=== PATIENT | female | born 2000 | race Caucasian/White ===

== ENCOUNTER 2022-04-11 12:00 | Outpatient (CLI) | payer OTHER ==
[2022-04-11 18:58] LABS: HCT - HEMATOCRIT 32.8 % (37.0-47.0); HGB - HEMOGLOBIN 10.2 g/dL (12.0-16.0); MEAN CORPUSCULAR HEMOGLOBIN 29.4 pg (27.0-31.0); MEAN CORPUSCULAR HGB CONC 31.1 g/dL (32.0-36.0); MEAN CORPUSCULAR VOLUME 94.5 fL (81.0-99.0); MEAN PLATELET VOLUME 10.1 fL (7.9-10.8); RED BLOOD COUNT 3.47 10^6/uL (4.20-5.40); RED CELL DISTRIBUTION WIDTH 13.2 % (12.0-15.0); WHITE BLOOD COUNT 9.4 x10^3/uL (4.8-10.8)
== END 2022-04-11 12:01 | disposition home or self-care (01) ==
LOC: LAB.N 12:00
PROVIDERS: ATTEND Nurse Practitioner
DX: Z34.90 Encounter for supervision of normal pregnancy, unspecified, unspecified trimester (principal); Z36.89 Encounter for other specified antenatal screening
CPT/HCPCS: 36415; 82728; 82950; 85027

== ENCOUNTER 2022-05-04 07:08 | Outpatient (CLI) | payer OTHER ==
--- NOTE | 2022-05-04 10:47 | Ultrasound Report ---
PROCEDURE: OB F/U or Repeat INDICATIONS: PYELECTASIS OUTSIDE/PRIOR DATING DATA: Last menstrual period (LMP): 09/29/2021. LMP-based estimated date of delivery (RILEY): 07/06/2022. First dating scan (date and location): 12/24/2021, [facility] in [place]. Estimated date of delivery (RILEY) from first dating scan: 07/05/2022. The below data below was generated using the sonographic RILEY of 07/05/2022 TECHNIQUE: Real-time scanning was performed of the fetus, with image documentation and biometric measurements. Endovaginal scanning: Not performed COMPARISON: No images available. Reports from outside studies dated 12/25/2021 and 02/05/2022 FINDINGS: General: A single living intrauterine gestation is present. Presentation: Cephalic Placenta: Placental position is fundal and posterior, without previa. Amniotic fluid index: 17.0 cm, largest pocket is 5.2 cm. heart rate: 150 beats per minute. Maternal cervical canal: 3.6 cm long; normal length is 2.5 cm or more. biometrics: Biparietal diameter: 7.6 cm, 30 weeks, 4 days Head circumference: 28.2 cm, 30 weeks, 6 days Abdominal circumference: 25.5 cm, 29 weeks, 5 days Femur length: 5.9 cm, 30 weeks, 5 days Estimated gestational age from initial scan: 31 weeks, 1 day. Composite gestational age from present scan: 30 weeks, 3 days Estimated weight and percentile: 1528 g, 13 percentile Measurement variability in biometric dating: +/- 10 days from 12-20 weeks gestation, +/- 2 weeks from 20-30 weeks gestation, +/- 3 weeks at 30 weeks gestation or more. Other: Right renal pelvis measures 3.9 mm in diameter, normal. Left renal pelvis measures 5.5 mm in d iameter. No visible hydronephrosis. IMPRESSION: 1. Single living intrauterine with appropriate growth. 2. Estimated weight at the 13th percentile. 3. Minor left renal pelviectasis, consistent with anatomic survey report. Reviewed by: Jade Eubanks MD on 05/04/2022 10:46 AM PST Approved by: aJde Eubanks MD on 05/04/2022 10:46 AM PST Station ID: [id number]
== END 2022-05-04 07:09 | disposition home or self-care (01) ==
LOC: DI 07:08
PROVIDERS: ATTEND Obstetrics & Gynecology
DX: O35.8XX0 Maternal care for other (suspected) fetal abnormality and damage, not applicable or unspecified (principal); Z3A.30 30 weeks gestation of pregnancy

== ENCOUNTER 2022-05-25 07:02 | Outpatient (CLI) | payer OTHER ==
--- NOTE | 2022-05-25 08:25 | Ultrasound Report ---
PROCEDURE: OB F/U or Repeat INDICATIONS: UTERINE SIZE DATE DISCREPANCY OUTSIDE/PRIOR DATING DATA: Last menstrual period (LMP): 09/29/2021. LMP-based estimated date of delivery (RILEY): 07/06/2022. First dating scan (date and location): 12/24/2021, Dr. Adan. Estimated date of delivery (RILEY) from first dating scan: 07/05/2022. TECHNIQUE: Real-time scanning was performed of the fetus, with image documentation and biometric measurements. COMPARISON: OB ultrasound dated 05/04/2022 FINDINGS: General: A single living intrauterine gestation is present. Presentation: Vertex Placenta: Placental position is posterior last fundal, without previa. Amniotic fluid index: 13.1 cm, 39% for gestational age. heart rate: 164 beats per minute. Maternal cervical canal: 3.1 cm long; normal length is 2.5 cm or more. biometrics: Biparietal diameter: 8.3 cm, 33 weeks, 3 days Head circumference: 30.8 cm, 34 weeks, 2 days Abdominal circumference: 27.8 cm, 31 weeks, 6 days Femur length: 6.5 cm, 33 weeks, 3 days Estimated gestational age from initial scan: 34 weeks, 1 day Composite gestational age from present scan: 33 weeks, 3 days Estimated weight and percentile: 2029 g, 10.8% Measurement variability in biometric dating: +/- 10 days from 12-20 weeks gestation, +/- 2 weeks from 20-30 weeks gestation, +/- 3 weeks at 30 weeks gestation or more. Other: Cord S/D ratio: 5.57, 5.15, 5.6 IMPRESSION: 1. Single live intrauterine gestation with a composite gestational age of 33 weeks, 3 days which is c oncordant with dates by initial scan. 2. Estimated weight percentile of 10.8%. Developing IUGR cannot be excluded. 3. Elevated cord S/D ratios. Findings suggest placental insufficiency. These findings were discussed by the hose tester with MATTHIAS Celis at the time of the study. Reviewed by: Aditi Faith MD on 05/25/2022 8:23 AM PST Approved by: Aditi Faith MD on 05/25/2022 8:23 AM PST Station ID: [id number]
== END 2022-05-25 07:03 | disposition home or self-care (01) ==
LOC: DI 07:02
PROVIDERS: ATTEND Nurse Practitioner
DX: O26.843 Uterine size-date discrepancy, third trimester (principal); Z3A.33 33 weeks gestation of pregnancy

== ENCOUNTER 2022-06-02 10:14 | Outpatient (CLI) | payer OTHER ==
[2022-06-02 10:36] VITALS: BP 126/84
--- NOTE | 2022-06-02 21:33 | PROCEDURE REPORT ---
- HPI Diagnosis/Indication for NST: Intrauterine growth restriction Current EDU 07/06/22 Gestation 35 Weeks and 1 Days 1 Para 0 Vital Signs Temperature 98.1 F 06/02/22 10:29 Heart Rate 85 06/02/22 10:29 Respiratory Rate 16 06/02/22 10:29 Blood Pressure 126/84 H 06/02/22 10:29 Temperature 98.1 F 06/02/22 10:30 Heart Rate 85 06/02/22 10:30 Respiratory Rate 16 06/02/22 10:30 Blood Pressure 126/84 H 06/02/22 10:30 O2 Saturation If not protocol: Oxygen Flow, liters/minute - NST Procedure NST Procedure Start Date 06/02/22 Start Time 10:25 Stop Time 10:52 Vibroacoustic Stimulation Used No Patient States Movement Yes EFM: 140s, moderate variability, positive accelerations 15x15, no decelerations [place]: no contractions NST reactive/Cat 1 Performed and read 06/02/22 - Results and Plan Plan: 22yo at 35.1w presents for scheduled NST for IUGR - NST reactive - Follow up 3d for NST and office visit - MFM follow up next week
== END 2022-06-02 11:20 | disposition home or self-care (01) ==
LOC: WFO 10:14 → FBP 10:16 → WFO 11:20
PROVIDERS: ATTEND Nurse Practitioner
DX: O26.843 Uterine size-date discrepancy, third trimester (principal); Z3A.35 35 weeks gestation of pregnancy
CPT/HCPCS: 59025

== ENCOUNTER 2022-06-04 12:49 | Outpatient (CLI) | payer OTHER ==
--- NOTE | 2022-06-04 23:59 | Ultrasound Report ---
PROCEDURE: OB Biophysical Profile INDICATIONS: PLACENTA INSUFFICIENCY OUTSIDE/PRIOR DATING DATA: Last menstrual period (LMP): 09/29/2021. LMP-based estimated date of delivery (RILEY): 07/06/2022. First dating scan (date and location): 11/26/2021. Estimated date of delivery (RILEY) from first dating scan: 07/05/2022. The below data below was generated using the ultrasound RILEY of 07/05/2022 TECHNIQUE: Real-time scanning was performed of the fetus, with image documentation and biometric [place] surements. Biophysical profile was also obtained. Endovaginal scanning: Not performed COMPARISON: 05/25/2022 FINDINGS: General: A single living intrauterine gestation is present. Presentation: Cephalic Placenta: Placental position is posterior and fundal, without previa. Amniotic fluid index: 13.8 cm, normal for gestational age. Largest pocket is 3.9 cm heart rate: 147 beats per minute. Maternal cervical canal: Closed and 3.3 cm long; normal length is 2.5 cm or more. Gestational age 35 weeks 4 days Incidental note made of symmetric and normal renal pelvis diameters of 4.4 and 4.2 mm Umbilical artery Doppler: -3.17, mid cord-3.79, placental insertion-3.03. Resistive indices rang e from 0.67 at the placental insertion to 0.74 in the mid cord. Biophysical profile score Movement: 2/2 Respiration: 2/2 Tone: 2/2 Amniotic fluid volume:/2/2 Total score: 8 out of 8 IMPRESSION: 1. Single living intrauterine gestation. 2. Normal biophysical profile score. 3. Mid cord Doppler ratio greater than 95th percentile for gestational age. At the placental and feta l insertion, cord Dopplers have become normal compared to the prior study. 4. Normal diameter of renal pelvis bilaterally. Reviewed by: Jade Eubanks MD on 06/05/2022 12:09 AM PST Approved by: Jade Eubanks MD on 06/05/2022 12:09 AM PST Station ID: [id number]
== END 2022-06-04 12:50 | disposition home or self-care (01) ==
LOC: DI 12:49
PROVIDERS: ATTEND Nurse Practitioner
DX: O36.5130 Maternal care for known or suspected placental insufficiency, third trimester, not applicable or unspecified (principal); O26.843 Uterine size-date discrepancy, third trimester; Z3A.35 35 weeks gestation of pregnancy

== ENCOUNTER 2022-06-05 08:00 | Outpatient (CLI) | payer OTHER | END 2022-06-05 23:59 | disposition home or self-care (01) | LOC: LAB.WC 08:00 | PROVIDERS: ATTEND Obstetrics & Gynecology | DX: Z36.85 Encounter for antenatal screening for Streptococcus B (principal) | CPT/HCPCS: 87797 ==

== ENCOUNTER 2022-06-05 10:45 | Outpatient (CLI) | payer OTHER ==
[2022-06-05 11:05] VITALS: BP 120/70
== END 2022-06-05 11:34 | disposition home or self-care (01) ==
LOC: WFO 10:45 → FBP 10:46 → WFO 11:34
PROVIDERS: ATTEND Nurse Practitioner
DX: O26.843 Uterine size-date discrepancy, third trimester (principal); Z3A.35 35 weeks gestation of pregnancy
CPT/HCPCS: 59025

== ENCOUNTER 2022-06-05 13:02 | Outpatient (CLI) | payer OTHER ==
--- NOTE | 2022-06-05 17:12 | PROCEDURE REPORT ---
- HPI Diagnosis/Indication for NST: Intrauterine growth restriction - NST Procedure NST Procedure Start Time 10:55 Stop Time 11:22 - Results and Plan Plan: Patient is a 22 year old at 35 weeks 4 days gestation here for scheduled NST. NST Performed 06/05/22 NST Read 06/05/22 FHT: 135 bpm baseline, moderate variability, accelerations present, no deceler ations. Reactive NST [place]: quiescent Diagnosis 35 weeks gestation IUGR Continue with twice weekly NST.
[2022-06-05 18:06] LABS: BASOPHILS % (AUTO) 0.3 %; EOSINOPHILS # (AUTO) 0.1 10^3/uL (0.0-0.7); EOSINOPHILS % (AUTO) 0.5 %; HCT - HEMATOCRIT 37.5 % (37.0-47.0); HGB - HEMOGLOBIN 11.9 g/dL (12.0-16.0); LYMPHOCYTES # (AUTO) 1.7 10^3/uL (1.5-3.5); LYMPHOCYTES % (AUTO) 18.1 %; MEAN CORPUSCULAR HEMOGLOBIN 30.2 pg (27.0-31.0); MEAN CORPUSCULAR HGB CONC 31.7 g/dL (32.0-36.0); MEAN CORPUSCULAR VOLUME 95.2 fL (81.0-99.0); MEAN PLATELET VOLUME 10.9 fL (7.9-10.8); MONOCYTES # (AUTO) 0.7 10^3/uL (0.0-1.0); MONOCYTES % (AUTO) 7.1 %; NEUTROPHILS # (AUTO) 6.8 10^3/uL (1.5-6.6); NEUTROPHILS % (AUTO) 73.2 %; PLT - PLATELET COUNT 241 10^3/uL (130-450); RED BLOOD COUNT 3.94 10^6/uL (4.20-5.40); WHITE BLOOD COUNT 9.3 x10^3/uL (4.8-10.8)
== END 2022-06-05 13:03 | disposition home or self-care (01) ==
LOC: LAB.N 13:02
PROVIDERS: ATTEND Nurse Practitioner
DX: Z13.0 Encounter for screening for diseases of the blood and blood-forming organs and certain disorders involving the immune mechanism (principal)
CPT/HCPCS: 36415; 82728; 85025

== ENCOUNTER 2022-06-09 10:10 | Outpatient (CLI) | payer OTHER ==
[2022-06-09 10:24] VITALS: BP 117/71
--- NOTE | 2022-06-09 21:19 | PROCEDURE REPORT ---
- HPI Diagnosis/Indication for NST: Intrauterine growth restriction Current EDU 07/06/22 Gestation 36 Weeks and 1 Days 1 Para 0 Vital Signs Temperature 98.1 F 06/09/22 10:19 Heart Rate 101 H 06/09/22 10:19 Respiratory Rate 16 06/09/22 10:19 Blood Pressure 117/71 06/09/22 10:19 Temperature 98.1 F 06/09/22 10:36 Heart Rate 101 H 06/09/22 10:36 Respiratory Rate 16 06/09/22 10:36 Blood Pressure 117/71 06/09/22 10:36 O2 Saturation If not protocol: Oxygen Flow, liters/minute - NST Procedure NST Procedure Start Date 06/09/22 Start Time 10:15 Stop Time 10:45 Vibroacoustic Stimulation Used No Patient States Movement Yes EFM: 150s, moderate variability, positive 15x15 accelerations, no decelerations [place]: none NST reactive/Cat 1 Read and performed 06/09/22 - Results and Plan Plan: 22yo at 36.1 presenting for scheduled NST for IUGR - She is doing NST twice a week and has MFM consultation for concern of IUGR. MFM US 16th% and elevated dopplers. She has repeat US 06/12 with MFM. - Anemia improved - NST reactive, NST 1w follow up
== END 2022-06-09 10:50 | disposition home or self-care (01) ==
LOC: WFO 10:10 → FBP 10:11 → WFO 10:50
PROVIDERS: ATTEND Nurse Practitioner
DX: O36.5930 Maternal care for other known or suspected poor fetal growth, third trimester, not applicable or unspecified (principal); O99.013 Anemia complicating pregnancy, third trimester; Z3A.36 36 weeks gestation of pregnancy
CPT/HCPCS: 59025

== ENCOUNTER 2022-06-15 11:36 | Emergency (ER) | payer OTHER ==
[2022-06-15 12:44] LABS: B. PARAPERTUSSIS- RESP PCR PAN NOT DETECTED; B. PERTUSSIS- RESP PCR PANEL NOT DETECTED; C. PNEUMONIAE- RESP PCR PANEL NOT DETECTED; CORONAVIRUS 229E-RESP PCR NOT DETECTED; CORONAVIRUS HKU1-RESP PCR NOT DETECTED; CORONAVIRUS NL63-RESP PCR NOT DETECTED; CORONAVIRUS OC43-RESP PCR NOT DETECTED; HUMAN METAPNEUMOVIRUS DETECTED; INFLUENZA A- RESP PCR PANEL NOT DETECTED; INFLUENZA B - RESP PCR PANEL NOT DETECTED; M. PNEUMONIAE- RESP PCR PANEL NOT DETECTED; PARAINFLUENZA VIRUS 1 NOT DETECTED; PARAINFLUENZA VIRUS 2 NOT DETECTED; PARAINFLUENZA VIRUS 3 NOT DETECTED; PARAINFLUENZA VIRUS 4 NOT DETECTED; RHINOVIRUS/ENTEROVIRUS NOT DETECTED; RSV- RESP PCR PANEL NOT DETECTED; SARS-CoV-2 -RESP PCR PANEL NOT DETECTED
--- NOTE | 2022-06-15 13:41 | ED Physician Documentation ---
PD HPI URI - Stated complaint Stated Complaint: COUGH - Chief complaint Chief Complaint: Resp - History obtained from History obtained from: Patient - History of Present Illness Pain level max: 5 Pain level now: 3 Associated symptoms: Nasal congestion, Rhinorrhea, Dry cough. No: Fever, Chills, Hemoptysis, Dyspnea - Additional information Additional information: 22-year-old female presents to the emergency department with a cough for the past 3 days. She is 37 weeks . She states that she tried Robitussin and Mucinex without relief. She has pain with coughing. No fevers. No chills. Does have rhinorrhea and congestion. She is G1, P0. Followed by OB here. No vaginal bleeding or discharge. No pelvic pain. Review of Systems Constitutional: denies: Fever, Chills GI: reports: Vomiting (Posttussive emesis only.). denies: Diarrhea Musculoskeletal: denies: Neck pain, Back pain Neurologic: denies: Headache PD PAST MEDICAL HISTORY - Past Medical History Past Medical History: No - Past Surgical History Past Surgical History: No - Present Medications Home Medications: Ambulatory Orders Medication Instructions Recorded Confirmed Benzonatate [Tessalon] 200 mg PO TID PRN #30 cap 06/15/22 Codeine Phosphate/Guaifenesin 5 ml PO Q6H PRN #60 ml 06/15/22 [Guaifen-Codeine 100-10 mg/5 ml] - Allergies Allergies/Adverse Reactions: Allergies Allergy/AdvReac Type Severity Reaction Status Date / Time No Known Allergies Allergy Unknown Verified 06/15/22 11:44 - Social History Does the pt smoke?: No Smoking Status: Never smoker Does the pt drink ETOH?: No Does the pt have substance abuse?: No - Immunizations Immunizations are current?: Yes - POLST Patient has POLST: No PD ED PE NORMAL - Vitals Vital signs reviewed: Yes - General General: Alert and oriented X 3, No acute distress - HEENT HEENT: Moist mucous membranes - Cardiac Cardiac: RRR, Strong equal pulses - Respiratory Respiratory: No respiratory distress, Clear bilaterally - Abdomen Abdomen: Soft, Other (Gravid abdomen, nontender) - Derm Derm: Warm and dry - Extremities Extremities: No edema - Neuro Neuro: Alert and oriented X 3 - Psych Psych: Normal mood, Normal affect Results - Vitals Vitals: Vital Signs - 24 hr 06/15/22 11:40 Temperature 37.0 C Heart Rate 131 H Respiratory 22 Rate Blood Pressure 137/88 H O2 Saturation 98 Oxygen O2 Source Room air - Labs Labs: Laboratory Tests 06/15/22 11:47 Nasal Adenovirus (PCR) NOT DETECTED Nasal B. parapertussis DNA (PCR) NOT DETECTED Nasal Coronavir 229E PCR NOT DETECTED Nasal Coronavir HKU1 PCR NOT DETECTED Nasal Coronavir NL63 PCR NOT DETECTED Nasal Coronavir OC43 PCR NOT DETECTED Nasal Enterovir/Rhinovir PCR NOT DETECTED Nasal Influenza B PCR NOT DETECTED Nasal Influenza A PCR NOT DETECTED Nasal Parainfluen 1 PCR NOT DETECTED Nasal Parainfluen 2 PCR NOT DETECTED Nasal Parainfluen 3 PCR NOT DETECTED Nasal Parainfluen 4 PCR NOT DETECTED Nasal RSV (PCR) NOT DETECTED Nasal B.pertussis DNA PCR NOT DETECTED Nasal C.pneumoniae (PCR) NOT DETECTED Hi Human Metapneumo PCR DETECTED A Nasal M.pneumoniae (PCR) NOT DETECTED Nasal SARS-CoV-2 (PCR) NOT DETECTED PD Medical Decision Making - ED course Complexity details: considered differential, d/w patient, d/w family, d/w bus info consultant ED course: 22-year-old female with a viral URI. Positive for human metapneumovirus on PCR testing. No evidence of pneumonia. No indication for antibiotics. No fever. No hypoxia. Discussed the case with Dr. Adan, OB on-call. We will place her on guaifenesin with codeine. We will also place her on Tessalon. Patient counseled regarding signs and symptoms for which I believe and urgent re- evaluation would be necessary. Patient with good understanding of and agreement to plan and is comfortable going home at this time This document was made in part using voice recognition software. While efforts are made to proofread this document, sound alike and grammatical errors may occur. Departure - Departure Disposition: 01 Home, Self Care Clinical Impression: Infection due to human metapneumovirus (hMPV), Viral URI Condition: Good Instructions: ED Viral Syndrome Follow-Up: Valerie Mosley ARNP [Provider Admit Priv/Credential] - Within 1 week Prescriptions: Codeine Phosphate/Guaifenesin [Guaifen-Codeine 100-10 mg/5 ml] 5 ml PO Q6H PRN #60 ml PRN Reason: Cough Benzonatate [Tessalon] 200 mg PO TID PRN #30 cap PRN Reason: Cough Comments: You have tested positive for human metapneumovirus today. Please follow-up with your OB for further care. Your medications were sent to [facility] in [place]. I did discuss your case with Dr. Adan from OB today. Please return if you worsen. I am prescribing a short course of narcotic pain medication for you. These are potentially dangerous and addictive medications that should be used carefully. These medications may constipate you. Take an fter-ocd-ybosnve stool softener (docusate) twice daily with plenty of water while taking these medications. If you go 24 hours without a bowel movement, take neeb-mij-kiwxosp miralax, per package instructions. Do not drink or drive while taking these medications. If you received narcotic or sedating medications while in the emergency department, do not drive for 24 hours. Store this medication in a safe, secure place and out of reach of children. It is a violation of federal law to give or sell this medication to another per son or to use in a manner other than prescribed. The ED will not refill narcotic prescriptions, including prescriptions lost or stolen. To dispose of unwanted medications: 1. [facility] at [address] in [place] has a medication drop box. They accept prescription medications (in pill form) Wednesday through Wednesday 9:00 a.m. to 5:00 p.m. 2. The [facility] accepts prescription medications (in pill form only) for disposal year round. Call for more information. 3. Contact the [facility] for the next [facility] sponsored prescription drug collection event. , [phone], or [phone];
[2022-06-15 13:51] VITALS: BP 125/72
== END 2022-06-15 13:50 | disposition home or self-care (01) ==
LOC: ED 11:36
DX: O98.513 Other viral diseases complicating pregnancy, third trimester (principal); Z3A.37 37 weeks gestation of pregnancy; J06.9 Acute upper respiratory infection, unspecified; B97.81 Human metapneumovirus as the cause of diseases classified elsewhere; Z20.822 Contact with and (suspected) exposure to COVID-19
CPT/HCPCS: 87633; 99283

== ENCOUNTER 2022-06-22 07:54 | Inpatient (IN) | payer OTHER ==
[2022-06-22] MEDS ORDERED: CARBOPROST TROMETHAMINE 250 MCG/ML AMP IM PRN (08:50)
[2022-06-22] MEDS ORDERED: miSOPROStoL 200 MCG TABLET BC PRN (08:50)
[2022-06-22] MEDS ORDERED: hydrALAZINE INJ 20 MG/ML VIAL IVP PRN ×2 (08:50)
[2022-06-22] MEDS ORDERED: METHYLERGONOVINE 0.2 MG/ML VIAL IM PRN (08:50)
[2022-06-22] MEDS ORDERED: LABETALOL 20 MG/4 ML SYRINGE IVP PRN ×3 (08:50)
[2022-06-22] MEDS ORDERED: fentaNYL 100 MCG/2 ML VIAL IVP PRN (08:50)
[2022-06-22] MEDS ORDERED: TERBUTALINE 1 MG/ML VIAL SUBQ PRN (08:50)
[2022-06-22] MEDS ORDERED: lidocaine 1% 20 ML MDV ID PRN (08:50)
[2022-06-22] MEDS ORDERED: TRANEXAMIC ACID IN NACL 1,000 MG/100 ML BAG IV PRN (08:50)
[2022-06-22] MEDS ORDERED: OXYTOCIN 10 UNIT/ML VIAL IM PRN (08:50)
[2022-06-22] MEDS ORDERED: LACTATED RINGERS 500 ML IV ONE (08:50)
[2022-06-22] MEDS ORDERED: NIFEdipine 10 MG CAPSULE PO PRN (08:50)
[2022-06-22] MEDS ORDERED: SODIUM CHLORIDE FLUSH 0.9% 10 ML SYRINGE IVP PRN (08:50)
[2022-06-22] MEDS ORDERED: miSOPROStoL 200 MCG TABLET PR PRN (08:50)
[2022-06-22] MEDS ORDERED: SODIUM CHLORIDE FLUSH 0.9% 10 ML SYRINGE IVP SCH (09:00)
[2022-06-22] MEDS ORDERED: ONDANSETRON 4 MG/2 ML VIAL IVP PRN ×2 (09:00→10:47)
--- NOTE | 2022-06-22 09:34 | HISTORY & PHYSICAL EXAMINATION ---
Admit History - Visit Reason Visit Reason: Contractions - : 1 Parity: 0 Care: positive: [facility] Risk/History: positive: Other (transferred from [facility] at 27+ we eks) Complications This : positive: Other (SGA and anemia) Smoking Status: Never smoker - Mother's Labs Mother's Blood Type: positive: O Mother's RH: positive: Negative GBS: positive: Group B Step Negative Rubella Status: positive: Immune Meds/Allgy - Home Medications Home Medications: Ambulatory Orders Medication Instructions Recorded Confirmed Benzonatate [Tessalon] 200 mg PO TID PRN #30 cap 06/15/22 Codeine Phosphate/Guaifenesin 5 ml PO Q6H PRN #60 ml 06/15/22 [Guaifen-Codeine 100-10 mg/5 ml] - Allergies Allergies/Adverse Reactions: Allergies Allergy/AdvReac Type Severity Reaction Status Date / Time No Known Allergies Allergy Unknown Verified 06/15/22 11:44 Review of Systems - All Other Systems All Other Systems: reports: Reviewed and negative Physical - Abdominal Exam Vital Signs: Temp Pulse Resp BP Pulse Ox O2 Flow Rate 97.9 F 120 H 18 124/88 H 06/22/22 08:06 06/22/22 08:06 06/22/22 08:06 06/22/22 08:06 Contraction Intensity: positive: Moderate to strong Uterine Resting Tone: positive: Soft - Monitoring Strip Review: positive: Category I - Presentation Presentation: positive: Vertex - Vaginal Exam Membranes: positive: Membranes intact Station: positive: 0 Cervical Position: positive: Midposition - Speculum Exam Speculum Exam Performed: positive: No Plan for Labor - Plan For Labor I expect patient to be DC'd or transferred within 96 hours.: Yes Plan for Labor: in active labor pain management: she requested an epidural NVD possible amniotomy after discussion
[2022-06-22] MEDS ORDERED: ROPIVACAINE 0.2% 200 MG/100 ML BAG EP ONE (10:00)
[2022-06-22 10:38] LABS: BASOPHILS % (AUTO) 0.2 %; EOSINOPHILS % (AUTO) 0.1 %; HCT - HEMATOCRIT 34.1 % (37.0-47.0); HGB - HEMOGLOBIN 11.8 g/dL (12.0-16.0); LYMPHOCYTES # (AUTO) 1.1 10^3/uL (1.5-3.5); LYMPHOCYTES % (AUTO) 12.5 %; MEAN CORPUSCULAR HEMOGLOBIN 30.7 pg (27.0-31.0); MEAN CORPUSCULAR HGB CONC 34.6 g/dL (32.0-36.0); MEAN CORPUSCULAR VOLUME 88.8 fL (81.0-99.0); MONOCYTES # (AUTO) 0.5 10^3/uL (0.0-1.0); MONOCYTES % (AUTO) 5.8 %; NEUTROPHILS # (AUTO) 7.3 10^3/uL (1.5-6.6); PLT - PLATELET COUNT 292 10^3/uL (130-450); RED BLOOD COUNT 3.84 10^6/uL (4.20-5.40); RED CELL DISTRIBUTION WIDTH 13.9 % (12.0-15.0)
[2022-06-22] MEDS ORDERED: ROPIVACAINE 0.2% 200 MG/100 ML BAG EP PRN (10:47)
[2022-06-22] MEDS ORDERED: NALOXONE 0.4 MG/ML VIAL IVP PRN (10:47)
[2022-06-22] MEDS ORDERED: ePHEDrine 50 MG/ML VIAL IVP PRN (10:47)
[2022-06-22] MEDS ORDERED: NALBUPHINE 10 MG/ML AMP IVP PRN (10:47)
[2022-06-22] MEDS ORDERED: METOCLOPRAMIDE 10 MG/2 ML VIAL IVP PRN (10:47)
[2022-06-22] MEDS ORDERED: diphenhydrAMINE INJ 50 MG/ML VIAL IVP PRN (10:47)
[2022-06-22] MEDS: guaiFENesin/DEXTROMETHORPHAN 10 ML UDC PO PRN (10:49)
--- NOTE | 2022-06-22 10:51 | ANESTHESIA ---
Pre-Anesthesia VS, & Labs - Diagnosis labor - Procedure epidural Vital Signs: Temp Pulse Resp BP Pulse Ox O2 Flow Rate 36.6 C 120 H 18 124/88 H 06/22/22 09:15 06/22/22 08:06 06/22/22 08:06 06/22/22 08:06 Height: 5 ft 4 in Weight (kg): 69.853 kg Body Mass Index: 26.4 BMI Classification: Overweight - NPO >8 hours - Is Patient ?: Yes - Lab Results Current Lab Results: Laboratory Tests 06/22/22 09:55: WBC 9.0, RBC 3.84 L, Hgb 11.8 L, Hct 34.1 L, MCV 88.8, MCH 30.7, MCHC 34.6, RDW 13.9, Plt Count 292, MPV 10.0, Neut # (Auto) 7.3 H, Lymph # (Auto) 1.1 L, [place] # (Auto) 0.5, Eos # (Auto) 0.0, Baso # (Auto) 0.0, Absolute Nucleated RBC 0.00, Nucleated RBC % 0.0 Fish Bones: 06/22/22 09:55 Home Medications and Allergies Active Medications Carboprost Tromethamine (Carboprost Tromethamine 250 Mcg/Ml Amp) 250 mcg IM .ONCE PRN PRN Reason: Hemorrhage Fentanyl (Fentanyl 100 Mcg/2 Ml Vial) 50 mcg IVP Q1H PRN PRN Reason: Severe Pain (score 7-10) Guaifenesin (Guaifenesin/Dextromethorphan 10 Ml Udc) 10 ml PO Q6HR PRN PRN Reason: Cough Hydralazine HCl (Hydralazine Inj 20 Mg/Ml Vial) 5 - 10 mg IVP Q20M PRN; Protocol PRN Reason: SBP> or= 160 OR DBP> or= 110 Hydralazine HCl (Hydralazine Inj 20 Mg/Ml Vial) 10 mg IVP .ONCE PRN; Protocol PRN Reason: SBP> or= 160 OR DBP> or= 110 Oxytocin/Sodium Chloride (Pitocin/Sodium Chloride) 500 mls @ 999 mls/hr IV PRN PRN; Protocol PRN Reason: POST- HEMORR PREVENTION Tranexamic Acid (Tranexamic 1,000 Mg/100ml-Nacl) 1,000 mg in 100 mls @ 600 mls/hr IV Q30M PRN PRN Reason: EBL >1200mL and within 3hr Lactated Ringer's (Lr) 1,000 mls @ 125 mls/hr IV .Q8H ABHISHEK Labetalol HCl (Labetalol 20 Mg/4 Ml Syringe) 20 - 80 mg IVP Q10M PRN; Protocol PRN Reason: SBP> or= 160 OR DBP> or= 110 Labetalol HCl (Labetalol 20 Mg/4 Ml Syringe) 20 mg IVP .ONCE PRN; Protocol PRN Reason: SBP> or= 160 OR DBP> or= 110 Labetalol HCl (Labetalol 20 Mg/4 Ml Syringe) 20 - 40 mg IVP Q10M PRN; Protocol PRN Reason: SBP> or= 160 OR DBP> or= 110 Lidocaine HCl (Lidocaine 1% 20 Ml Mdv) 20 ml ID .ONCE PRN PRN Reason: PERINEAL REPAIR Stop: 06/25/22 08:51 Methylergonovine Maleate (Methylergonovine 0.2 Mg/Ml Vial) 0.2 mg IM .ONCE PRN PRN Reason: Hemorrhage Misoprostol (Misoprostol 200 Mcg Tablet) 600 mcg BC .ONCE PRN PRN Reason: Hemorrhage Misoprostol (Misoprostol 200 Mcg Tablet) 800 mcg VT .ONCE PRN PRN Reason: Hemorrhage Nifedipine (Nifedipine 10 Mg Capsule) 10 - 20 mg PO Q20M PRN; Protocol PRN Reason: SBP> or= 160 OR DBP> or= 110 Ondansetron HCl (Ondansetron 4 Mg/2 Ml Vial) 4 mg IVP Q4HR PRN PRN Reason: Nausea / Vomiting Last Admin: 06/22/22 10:13 Dose: 4 mg Oxytocin (Oxytocin 10 Unit/Ml Vial) 10 unit IM .ONCE PRN PRN Reason: Step One if no IV access. Sodium Chloride (Sodium Chloride Flush 0.9% 10 Ml Syringe) 10 ml IVP PRN PRN PRN Reason: NEEDED PER PROVIDER ORDERS Last Admin: 06/22/22 10:19 Dose: 10 ml Sodium Chloride (Sodium Chloride Flush 0.9% 10 Ml Syringe) 10 ml IVP Q8H ABHISHEK Last Admin: 06/22/22 10:19 Dose: 10 ml Terbutaline Sulfate (Terbutaline 1 Mg/Ml Vial) 0.25 mg SUBQ .ONCE PRN PRN Reason: Tachystole Allergies/Adverse Reactions: Allergies Allergy/AdvReac Type Severity Reaction Status Date / Time No Known Allergies Allergy Unknown Verified 06/15/22 11:44 Anes History & Medical History - Anesthetic History Anesthesia Complications: reports: No previous complications - Medical History Cardiovascular: reports: None Pulmonary: reports: Other (current URI, resolving cough, covid negative) Smoking Status: Never smoker - Obstetrical History : 1 Parity: 0 Events: reports: Other (transferred from [facility] at 27+ weeks) Complications: reports: Other (SGA and anemia) Exam General: Alert, Oriented x3 Dental: WNL Mouth Opening: Greater than 4 Fingerbreadths Neck Mobility: Normal Mallampati classification: II Thyromental Distance: less than 4 cm Respiratory: Rhonchi Cardiovascular: Regular rate Plan Anesthesia Type: Epidural Consent for Procedure(s) Verified and Reviewed: Yes Code Status: Attempt Resuscitation ASA classification: 2-Mild systemic disease Is this case an emergency?: No
[2022-06-22] MEDS: LACTATED RINGERS 1,000 ML IV SCH ×2 (11:00→14:14)
--- NOTE | 2022-06-22 12:08 | PROVIDER PROGRESS NOTE ---
Progress Note An epidural was placed and she is very comfortable. heart tone is category 1. Artificial rupture of membrane was discussed and she understood and consented. AROM was done without any difficulty and clear fluid was noted. Cervix is about 7 cm with 100% effacement at 0 station. Plan: Continue to observe and normal vaginal delivery
--- NOTE | 2022-06-22 13:50 | PROVIDER PROGRESS NOTE ---
Progress Note FHT: cat 1 Cx: c/100+1 vtx Will let her to start to push
[2022-06-22] MEDS ORDERED: OXYTOCIN/SODIUM CHLORIDE 500 ML IV SCH (15:00)
[2022-06-22] MEDS ORDERED: CITRIC ACID/SODIUM CITRATE 15 ML UDC PO ONE (15:15)
[2022-06-22] MEDS: OXYTOCIN/SODIUM CHLORIDE 500 ML IV PRN ×2 (16:21→17:50)
--- NOTE | 2022-06-22 16:39 | DELIVERY NOTE ---
Delivery Note - Labor Labor: positive: Spontaneous - Delivery Method Delivery Method: positive: Spontaneous vaginal delivery - Presentation Presentation: positive: Vertex - Nuchal Cord Nuchal Cord: positive: None - Anesthetic Anesthetic Type: - Amniotic Fluid Description Amniotic Fluid Description: positive: Clear - Laceration Laceration: positive: 2nd degree - Suture Suture Type: positive: Vicryl Suture Size: positive: 2-0 - Delivery Outcome Delivery Outcome: positive: Livebirth - [place]: positive: Placed in direct skin contact with mother, Bulb syringe [place] sex: positive: Male - Cord Cord: positive: 3 vessels - Placenta Placenta: positive: Intact, Spontaneous - Estimated Blood Loss Estimated Blood Loss (in cc): 150 - Post Delivery Events Post Delivery Events: positive: No post delivery events - Delivery Comments (Free Text/Narrative) Delivery Comments (Free Text/Narrative): Delivery Summary: Patient was placed in the dorsal lithotomy position. Upon maternal pushing the head was delivered atraumatically followed by the anterior shoulder, posterior shoulder, then the remainder of the infant's body. A [ male ] was delivered with APGARS of 9 at 1 minute and 9 at 5 minutes. The was placed on its mother's chest . After the cord finished pulsating, the umbilical cord was clamped times two and cut. The placenta delivered intact with three vessel cord. Placenta [was not] sent to pathology. Thirty units of Pitocin were added to the IV fluid and allowed to run freely. Uterine massage was performed until uterus was deemed firm. Upon inspection of the perineum, vagina and 2nd degree laceration was noted which was repaired with 2-0 vicryl in the usual fashion. Upon re-inspection the patient was hemostatic. Uterus again massaged and found to be firm. Needle and sponge counts were correct. Patient was stable and allowed to recover in L&D room. Infant was stable and remained in room with mother. weight is pending at this time.
[2022-06-22] MEDS ORDERED: LACTATED RINGERS 1,000 ML IV SCH (17:00)
[2022-06-22] MEDS: IBUPROFEN 600 MG TABLET PO SCH ×2 (17:46→23:26)
[2022-06-22] MEDS: ACETAMINOPHEN 500 MG TABLET PO SCH (19:21)
[2022-06-22] MEDS: DOCUSATE SODIUM 100 MG CAPSULE PO SCH (23:41)
[2022-06-23] MEDS: guaiFENesin/DEXTROMETHORPHAN 10 ML UDC PO PRN ×2 (00:11→08:46)
[2022-06-23] MEDS: ACETAMINOPHEN 500 MG TABLET PO SCH ×3 (04:19→19:52)
--- NOTE | 2022-06-23 06:57 | PROVIDER PROGRESS NOTE ---
Progress Note day 1 Rested well Having no problems but just tired Trying breast-feeding and perineal repair was intact Fundus firm Normal lochia Plan discharge home tomorrow
[2022-06-23] MEDS: IBUPROFEN 600 MG TABLET PO SCH ×3 (06:58→19:53)
[2022-06-23] MEDS: DOCUSATE SODIUM 100 MG CAPSULE PO SCH ×2 (08:15→22:55)
[2022-06-24] MEDS: IBUPROFEN 600 MG TABLET PO SCH ×2 (02:45→08:07)
[2022-06-24] MEDS: ACETAMINOPHEN 500 MG TABLET PO SCH ×2 (05:32→08:08)
[2022-06-24 07:58] VITALS: BP 127/78
[2022-06-24] MEDS ORDERED: BENZOCAINE/MENTHOL LOZENGE MM PRN (08:07)
[2022-06-24] MEDS ORDERED: BENZONATATE 100 MG CAPSULE PO PRN (08:07)
[2022-06-24] MEDS: DOCUSATE SODIUM 100 MG CAPSULE PO SCH (08:08)
--- NOTE | 2022-06-24 08:09 | Discharge Plan ---
Discharge Plan Problem Reviewed?: Yes Disposition: Home, Self Care Condition: Good Diet: Regular Activity Restrictions: Additional Comments Shower Restrictions: No Driving Restrictions: Yes (Until pain is well controlled) Instruction Topics: Vaginal After No Smoking: If you smoke, Please STOP! Call for help. Follow-up with: Roderick Adan MD [Provider Admit Priv/Credential] -
--- NOTE | 2022-06-24 08:13 | DISCHARGE SUMMARY ---
Discharge Summary Admit Date: 06/22/22 Discharge Date: 06/24/22 Discharging Provider: Roderick Adan MD Code Status: Attempt Resuscitation Condition at Discharge: Good Discharge Disposition: 01 Home, Self Care - DIAGNOSES Admission Diagnoses: 38 weeks gestation Term labor Discharge Diagnoses with Status of Each Condition: Term labor: Delivered - HPI History of Present Illness: Subjective Patient reports she is doing well. Lochia appropriate. Denies heavy bleeding. Ambulating. Pelvic and abdominal pain well-controlled. Tolerating oral intake. Diet: Regular. Voiding without difficulty. Passing flatus. Denies BM. Patient is bonding with baby in room Breast feeding going well. Denies feeling lightheaded, dizzy or excessively fatigued. Objective General: Alert, oriented, no apparent distress. Cardiovascular: Regular rate. Regular rhythm. Lungs: No increased work of breathing. Abdomen: Uterus firm. Below umbilicus. No guarding or rebound. Extremities: No pain on palpation. No cords palpated. Distal pulses intact. - HOSPITAL COURSE Hospital Course: Patient presented in active labor and received an epidural for pain control. Amniotomy was performed. She progressed to complete and had an uncomplicated vaginal delivery. She did have a second-degree midline laceration that was repaired. course was unremarkable. She was discharged on day 2 with . - ALLERGIES Allergies/Adverse Reactions: Allergies Allergy/AdvReac Type Severity Reaction Status Date / Time No Known Allergies Allergy Unknown Verified 06/15/22 11:44 - MEDICATIONS Home Medications: Ambulatory Orders Medication Instructions Recorded Confirmed Benzonatate [Tessalon] 200 mg PO TID PRN #30 cap 06/15/22 Codeine Phosphate/Guaifenesin 5 ml PO Q6H PRN #60 ml 06/15/22 [Guaifen-Codeine 100-10 mg/5 ml] - LABS Result Diagrams: 06/23/22 06:45
--- NOTE | 2022-07-10 07:16 | Labor Flowsheet ---
Labor Flowsheet Datetime Report Generated by CPN: 07/10/2022 07:16 Datetime: 06/24/2022 07:57 VITAL SIGNS NBP Sys/Rita/Mean (mmHg): 127 : 78 : 89 Pulse: 92 Datetime: 06/23/2022 20:00 SpO2 (%): 96 Datetime: 06/22/2022 19:16 COMMUNICATION Communication Comments: SBAR to RN Ellis Datetime: 06/22/2022 18:00 Stage of : Recovery Epidural Procedure Other: Cath Removed; Cath Intact Datetime: 06/22/2022 17:30 Respirations: 18 Datetime: 06/22/2022 17:00 Temperature (C): 36.8 Temperature Route: Oral Datetime: 06/22/2022 16:21 Medication Comments: Pit bolus started Datetime: 06/22/2022 16:17 Comments: Pit off Datetime: 06/22/2022 16:15 LaborFlag: Labor Datetime: 06/22/2022 16:01 UTERINE ACTIVITY Monitor Mode: External Frequency (min): 2-4 Quality: Moderate Duration (sec): pushing Pattern: Normal: <= 5 Contractions in 10 Minutes Resting Tone (Palpate): Relaxed ASSESSMENT A Monitor Mode: Telemetry FHR Baseline Rate : 150 Variability: Moderate 6-25 bpm Accelerations: None Decelerations: Variable Category: Category II Datetime: 06/22/2022 16:00 Patient Position/Activity: Right Tilt Datetime: 06/22/2022 15:47 MEDICATIONS Pitocin (milliunits): Increased to @ 5 Datetime: 06/22/2022 15:44 Contraction Comments: Pt with good pushing effort Datetime: 06/22/2022 15:24 Antiemetics/Antacids: Bicitra 30 ml PO Datetime: 06/22/2022 14:41 Patient Care Comments: peanut ball under left knee and right knee out with foot in Datetime: 06/22/2022 14:28 Monitor Interventions for FHR: Ultrasound Adjusted Datetime: 06/22/2022 14:04 PATIENT CARE IV/Blood Work: IV Bolus Started Datetime: 06/22/2022 14:02 Monitor Interventions for UA: [place] Adjusted Datetime: 06/22/2022 14:00 Oxygen Method: Room Air Datetime: 06/22/2022 13:45 VAGINAL EXAM Dilatation (cm): 10.0 Effacement (%): 100 Station: 1 Exam by: Dr. Mancuso Datetime: 06/22/2022 13:04 Pain Assessment Comments: Pt c/o pressure with ctx Datetime: 06/22/2022 11:10 Membrane Status: Ruptured Membranes Ruptured Date/Time: 06/22/2022 11:10 Membranes Rupture Method: Artificial Amniotic Fluid Color: Clear Amniotic Fluid Amount: Large Cervix, Consistency: Soft Datetime: 06/22/2022 10:38 PAIN Pain Relief Measures: Epidural Given Pain Coping: Sleeping Datetime: 06/22/2022 10:30 Anesthesia Comments: 1ST BOLUS Datetime: 06/22/2022 10:16 Epidural Procedure: Test Dose Datetime: 06/22/2022 10:05 PROCEDURE TIME OUT Procedure Verify: Correct Patient Identity; Correct Side and Site are Marked; Correct Patient Posit ion Epidural Positioning: Sitting Datetime: 06/22/2022 09:49 ANESTHESIA Anesthesia Plans: Epidural Datetime: 06/22/2022 09:35 I/O Interventions: Up to BR
--- NOTE | 2022-07-17 08:40 | PROCEDURE REPORT ---
- HPI Diagnosis/Indication for NST: Other Current EDU 07/06/22 Gestation 38 Weeks and 0 Days 1 Para 0 Vital Signs Temperature 97.9 F 06/22/22 08:06 Heart Rate 120 H 06/22/22 08:06 Respiratory Rate 18 06/22/22 08:06 Blood Pressure 124/88 H 06/22/22 08:06 Temperature 98.4 F 06/24/22 07:55 Heart Rate 91 06/24/22 07:55 Respiratory Rate 18 06/24/22 07:55 Blood Pressure 127/78 06/24/22 07:55 O2 Saturation 98 06/24/22 07:55 If not protocol: Oxygen Flow, liters/minute - NST Procedure NST Procedure Start Date 06/22/22 Start Time 08:04 Stop Time 08:30 Vibroacoustic Stimulation Used No Patient States Movement Yes
--- NOTE | 2022-07-17 08:45 | PROCEDURE REPORT ---
- HPI Diagnosis/Indication for NST: Intrauterine growth restriction (She was transferred at 27 weeks and she was followed for risk factors for small gestational age and anemia) Current EDU 07/06/22 Gestation 38 Weeks and 0 Days 1 Para 0 Vital Signs Temperature 97.9 F 06/22/22 08:06 Heart Rate 120 H 06/22/22 08:06 Respiratory Rate 18 06/22/22 08:06 Blood Pressure 124/88 H 06/22/22 08:06 Temperature 98.4 F 06/24/22 07:55 Heart Rate 91 06/24/22 07:55 Respiratory Rate 18 06/24/22 07:55 Blood Pressure 127/78 06/24/22 07:55 O2 Saturation 98 06/24/22 07:55 If not protocol: Oxygen Flow, liters/minute - NST Procedure NST Procedure Start Date 06/22/22 Start Time 08:04 Stop Time 08:30 Vibroacoustic Stimulation Used No Patient States Movement Yes Nonstress test was reactive and she is going to be admitted for labor management - Results and Plan Findings/Impression: Nonreactive NST Plan: NVD With monitoring []
== END 2022-06-24 11:57 | disposition home or self-care (01) | DRG 807 ==
LOC: WFO 07:54 → FBP 07:56 → WFO 09:22
PROVIDERS: ADMIT Obstetrics & Gynecology; ATTEND Obstetrics & Gynecology
PROC: 10907ZC Drainage of Amniotic Fluid, Therapeutic from Products of Conception, Via Natural or Artificial Opening (ICD-10-PCS; principal; 2022-06-22)
PROC: 10E0XZZ Delivery of Products of Conception, External Approach (ICD-10-PCS; 2022-06-22)
DX: O36.5930 Maternal care for other known or suspected poor fetal growth, third trimester, not applicable or unspecified (principal); Z37.0 Single live birth; O70.1 Second degree perineal laceration during delivery; O99.02 Anemia complicating childbirth; Z3A.38 38 weeks gestation of pregnancy
CPT/HCPCS: 36415; 59025; 85018; 85025; 86850; 86900; 86901; 99215; A9270; J7120; 86870

== ENCOUNTER 2022-07-10 06:45 | Emergency (ER) | payer OTHER ==
[2022-07-10 07:53] LABS: BASOPHILS % (AUTO) 0.3 %; EOSINOPHILS # (AUTO) 0.1 10^3/uL (0.0-0.7); EOSINOPHILS % (AUTO) 0.8 %; HCT - HEMATOCRIT 41.8 % (37.0-47.0); HGB - HEMOGLOBIN 13.3 g/dL (12.0-16.0); LYMPHOCYTES # (AUTO) 1.4 10^3/uL (1.5-3.5); LYMPHOCYTES % (AUTO) 11.3 %; MEAN CORPUSCULAR HEMOGLOBIN 29.6 pg (27.0-31.0); MEAN CORPUSCULAR HGB CONC 31.8 g/dL (32.0-36.0); MEAN CORPUSCULAR VOLUME 93.1 fL (81.0-99.0); MEAN PLATELET VOLUME 9.2 fL (7.9-10.8); MONOCYTES # (AUTO) 0.7 10^3/uL (0.0-1.0); MONOCYTES % (AUTO) 5.5 %; NEUTROPHILS # (AUTO) 9.7 10^3/uL (1.5-6.6); NEUTROPHILS % (AUTO) 81.8 %; PLT - PLATELET COUNT 306 10^3/uL (130-450); RED BLOOD COUNT 4.49 10^6/uL (4.20-5.40); RED CELL DISTRIBUTION WIDTH 13.2 % (12.0-15.0); WHITE BLOOD COUNT 11.9 x10^3/uL (4.8-10.8)
[2022-07-10 07:58] LABS: BILIRUBIN,URINE NEGATIVE (NEGATIVE); GLUCOSE, URINE (UA) NEGATIVE (NEGATIVE); KETONES,URINE (UA) NEGATIVE (NEGATIVE); LEUKOCYTE ESTERASE, URINE NEGATIVE (NEGATIVE); NITRITE,URINE NEGATIVE (NEGATIVE); OCCULT BLOOD,URINE MODERATE (NEGATIVE); PH,URINE 6.5 PH (5.0-7.5); PROTEIN,URINE NEGATIVE (NEGATIVE); UROBILINOGEN,URINE 0.2 (NORMAL) E.U./dL (NORMAL)
[2022-07-10 08:00] LABS: CLARITY,URINE CLEAR (CLEAR); HCG UR QUAL NEGATIVE
--- NOTE | 2022-07-10 08:05 | ED Physician Documentation ---
PD HPI ABD PAIN - Stated complaint Stated Complaint: ABD PX/N/ - Chief complaint Chief Complaint: Abd Pain - History obtained from History obtained from: Patient - History of Present Illness Timing - onset: How many days ago (1-2) Timing - duration: Days (1-2) Timing - details: Gradual onset, Waxing and waning Quality: Cramping, Aching, Pain Location: RLQ, Suprapubic Radiation: No: Chest Associated symptoms: Fever (subjective feeling of chills.), Nausea, Vaginal bleeding (mild only). No: Diarrhea, Dysuria, Loss of appetite, Vaginal dc Similar symptoms before: Has not had sx before Recently seen: Admitted (2 weeks post at 38 wks EGA, without complications.) Review of Systems Constitutional: reports: Chills. denies: Fever Nose: denies: Rhinorrhea / runny nose, Congestion Throat: denies: Sore throat Respiratory: denies: Cough GI: reports: Abdominal Pain, Nausea. denies: Vomiting, Constipation, Diarrhea : reports: Vaginal bleeding (mild only 1 pad daily since delivery.). denies: Dysuria, Discharge Skin: denies: Rash Musculoskeletal: denies: Back pain PD PAST MEDICAL HISTORY - Past Medical History Past Medical History: No Cardiovascular: None Respiratory: None - Past Surgical History Past Surgical History: No - Present Medications Home Medications: Ambulatory Orders Medication Instructions Recorded Confirmed Ibuprofen [Motrin] 600 mg PO Q6H PRN #30 tab 07/10/22 Methylergonovine Maleate 0.2 mg PO Q4HR #3 tablet 07/10/22 [Methergine] - Allergies Allergies/Adverse Reactions: Allergies Allergy/AdvReac Type Severity Reaction Status Date / Time No Known Allergies Allergy Unknown Verified 07/10/22 07:27 - Social History Does the pt smoke?: No Smoking Status: Never smoker Does the pt drink ETOH?: No Does the pt have substance abuse?: No - Immunizations Immunizations are current?: Yes - POLST Patient has POLST: No PD ED PE NORMAL - Vitals Vital signs reviewed: Yes - General General: Alert and oriented X 3, Well developed/nourished, Other (appears in pain lower abd more to the right. ) - Neck Neck: Supple, no meningeal sign, No adenopathy - Cardiac Cardiac: No murmur. No: RRR (regular but tachycardic) - Respiratory Respiratory: Clear bilaterally - Abdomen Abdomen: Normal bowel sounds, Soft, Non distended, No organomegaly, Other (Tender in the suprapubic to right lower quadrant area with some local guarding but no percussion tenderness. No generalized percussion or rebound tenderness.) - Female Female : Deferred - Back Back: No CVA TTP - Derm Derm: Normal color, Warm and dry - Extremities Extremities: Normal ROM s pain, No edema, No calf tenderness / cord Results - Vitals Vitals: Vital Signs - 24 hr 07/10/22 07/10/22 07/10/22 07:20 10:17 12:13 Temperature 36.7 C Heart Rate 120 H 88 101 H Respiratory 16 16 16 Rate Blood Pressure 115/75 143/79 H 122/71 O2 Saturation 98 99 98 Oxygen O2 Source Room air - Labs Labs: Laboratory Tests 07/10/22 07/10/22 07/10/22 07:47 07:47 07:47 WBC 11.9 H RBC 4.49 Hgb 13.3 Hct 41.8 MCV 93.1 MCH 29.6 MCHC 31.8 L RDW 13.2 Plt Count 306 MPV 9.2 Neut # (Auto) 9.7 H Lymph # (Auto) 1.4 L [place] # (Auto) 0.7 Eos # (Auto) 0.1 Baso # (Auto) 0.0 Absolute Nucleated RBC 0.00 Nucleated RBC % 0.0 Sodium 137 Potassium 3.3 L Chloride 104 Carbon Dioxide 25 Anion Gap 8.0 BUN 8 Creatinine 0.5 Estimated GFR (MDRD) 153 Glucose 94 Calcium 8.7 Total Bilirubin 0.2 AST 17 ALT 15 Alkaline Phosphatase 105 Total Protein 7.4 Albumin 3.5 Globulin 3.9 Albumin/Globulin Ratio 0.9 L Lipase 34 Urine Color YELLOW Urine Clarity CLEAR Urine pH 6.5 Ur Specific [place] 1.015 Urine Protein NEGATIVE Urine Glucose (UA) NEGATIVE Urine Ketones NEGATIVE Urine Occult Blood MODERATE H Urine Nitrite NEGATIVE Urine Bilirubin NEGATIVE Urine Urobilinogen 0.2 (NORMAL) Ur Leukocyte Esterase NEGATIVE Urine RBC 6-10 H Urine WBC 0-3 Ur Squamous Epith Cells RARE Squamous Urine Bacteria Rare Urine Casts 0-2 Hyaline Casts Ur Microscopic Review INDICATED Urine Culture Comments NOT INDICATED Urine HCG, Qual NEGATIVE - Rads (name of study) abd U/S Relevant Findings:: Prelim report reviewed (normal appendix), See rad report elvic U/S Relevant Findings:: Prelim report reviewed (normal ovary and flow. Endometrial wall thick at 11 mm, but is post . Material 4x3x2.5 cm in BREANN. ), See rad report PD Medical Decision Making - ED course Complexity details: reviewed results (Ultrasound of the right lower quadrant showed a blind ended tubular structure in the right lower quadrant consistent with appendix that appears normal. Pelvic ultrasound showed heterogenous complex collection in the lower uterine segment measuring 4 x 3 x 2-1/2 cm. Uterine wall was thick at 11 am), considered differential (2 weeks with now development of cramps and pain. She is tender in the lower abdomen and right lower in particular. Consideration for endometritis versus ovarian cyst versus torsion or even appendicitis. We will start with ultrasound of both the pelvis and appendix.), d/w cosmetic consultant (Her appendix appeared normal and no signs of UTI nor ovarian cyst nor torsion nor free fluid. There was some material in the lower uterine segment concerning for either clot or retained products. I consulted Dr. Adan to come evaluate the patient.) Drug Therapy Requiring Monitoring for Toxicity: She had an IV started and was given medication ondansetron for nausea and Toradol 15 mg as well as 1 mg Dilaudid for pain.This did have reasonable improvement. No side effects encountered. ED course: The patient is feeling better regarding her pain. Dr. Adan came and evaluated the patient and felt it was likely a clot in the uterus that is causing the cramping at this point. She had not had much blood flow so may have accumulated. He ordered her some Methergine and will provide prescriptions for her and he sent those into the pharmacy. Departure - Departure Disposition: 01 Home, Self Care Clinical Impression: Lower abdominal pain, pain Condition: Stable Record reviewed to determine appropriate education?: Yes Prescriptions: Methylergonovine Maleate [Methergine] 0.2 mg PO Q4HR #3 tablet Ibuprofen [Motrin] 600 mg PO Q6H PRN #30 tab PRN Reason: Pain Comments: Your ultrasound did show some collection of fluid in the lower uterus/upper cervix. This is likely to be a clot of blood and is large enough that it would be causing some cramping as it tries to pass. Dr. Adan did not think it looked like retained products or an infection. Your ultrasound of the appendix showed a normal-appearing appendix. Your urine does not show signs of infection. At this point use the medications as prescribed by Dr. Adan. Add Tylenol every 4-6 hours if needed for pain as well. Return to the ER if increasing pain, fevers, persistent vomiting etc. Stay well-hydrated otherwise. It is okay to continue breast-feeding. Discharge Date/Time: 07/10/22 12:14
[2022-07-10 08:06] LABS: BACTERIA,URINE Rare /HPF (None Seen); CASTS, URINE 0-2 Hyaline Casts /LPF; SQUAMOUS EPITHELIAL CELL,UR RARE Squamous (<= Few); WBC,URINE 0-3 /HPF (0-5)
[2022-07-10 08:13] LABS: ALBUMIN 3.5 g/dL (3.2-5.5); ALBUMIN/GLOBULIN RATIO 0.9 (1.0-2.2); BILIRUBIN,TOTAL 0.2 mg/dL (0.2-1.0); CALCIUM 8.7 mg/dL (8.5-10.3); CREATININE 0.5 mg/dL (0.4-1.0); POTASSIUM 3.3 mmol/L (3.5-5.0); TOTAL PROTEIN 7.4 g/dL (6.7-8.2)
[2022-07-10] MEDS ORDERED: ONDANSETRON 4 MG/2 ML VIAL IVP STA (08:21)
[2022-07-10] MEDS ORDERED: HYDROmorphone 1 MG/ML CARPUJECT IVP STA (08:21)
[2022-07-10] MEDS ORDERED: SODIUM CHLORIDE 0.9% 1,000 ML IV STA (08:21)
[2022-07-10] MEDS ORDERED: KETOROLAC 15 MG/ML VIAL IVP STA (08:21)
--- NOTE | 2022-07-10 10:49 | Ultrasound Report ---
PROCEDURE: Pelvic w/Transvag+Doppler Comp INDICATIONS: pelvic pain, R; 2 wks post TECHNIQUE: Real-time scanning was performed of the pelvic organs, with image documentation. Additional endovagi nal scanning was necessary due to incomplete visualization of the adnexal and endometrial structures by transabdominal scanning. Doppler interrogation was performed of the ovaries bilaterally. COMPARISON: None. FINDINGS: No pathologic free abdominal or pelvic fluid. Uterus: Uterus is normal in size at 10.4 x 6.7 x 5.6 cm. The endometrium measures 11.4 mm in combin ed thickness. There is a heterogeneous, complex avascular collection in the lower uterine segment [place] suring 4.2 x 3.0 x 2.5 cm. This may potentially represent clot. Ovaries: Right ovary measures 4.9 x 3.2 x 2.1 cm with a volume of 17.0 mL. Left ovary measures 4.2 x 2.9 x 2.4 cm with a volume of 11.4 mL. There are less than 12 follicles in each ovary. Normal appear ing arterial and venous waveforms are confirmed to each ovary.] Other: No free pelvic fluid. IMPRESSION: There is a heterogeneous complex avascular collection in the lower uterine segment, poss ibly representing clot. No other significant findings. Above discussed with Srinath Hicks MD at the time of dictation. Reviewed by: Brant Lui MD on 07/10/2022 10:47 AM PDT Approved by: Brant Lui MD on 07/10/2022 10:47 AM PDT Station ID: [id number]
--- NOTE | 2022-07-10 10:50 | Ultrasound Report ---
PROCEDURE: Abdomen Limited INDICATIONS: RLQ pain since yesterday TECHNIQUE: Real-time focused scanning was performed of the abdomen with attention to the appendix, with image do cumentation. COMPARISON: None FINDINGS: Appendix visualization: Yes Appendix measurements: Maximum outer diameter is 5 mm. Wall thickness is 1.1 mm. Associated findings: Echogenic fat: Absent Appendiceal compressibility: Unable to assess, secondary to patient discomfort. Appendicoliths: Absent Nearby free fluid: Present Lymphadenopathy: Absent Tenderness on exam: Present IMPRESSION: The appendix is normal in caliber. However, it was not possible to evaluate for compressibility secon tim to patient pain. Comment: Recommend clinical correlation. Above discussed with Srinath Hicks MD at the time of dictation. Reviewed by: Brant Lui MD on 07/10/2022 10:48 AM PDT Approved by: Brant Lui MD on 07/10/2022 10:48 AM PDT Station ID: [id number]
[2022-07-10] MEDS ORDERED: METHYLERGONOVINE 0.2 MG/ML VIAL IM PRN (11:04)
--- NOTE | 2022-07-10 11:04 | CONSULTATION NOTE ---
Surgery Consult - Consult Date Consult Date: 07/10/22 - Chief Complaint Chief Complaint: Cramping - Home Meds/Allergies Allergies/Adverse Reactions: Allergies Allergy/AdvReac Type Severity Reaction Status Date / Time No Known Allergies Allergy Unknown Verified 07/10/22 07:27 - Vital Signs Vital Signs: Last Vital Signs Temp 98.1 F 07/10/22 07:20 Pulse 88 07/10/22 10:17 Resp 16 07/10/22 10:17 BP 143/79 H 07/10/22 10:17 Pulse Ox 99 07/10/22 10:17 O2 Flow Rate - Lab Results Result Diagrams: 07/10/22 07:47 07/10/22 07:47 - Consultation Note Consultation Note: HPI: Patient is a 22-year-old G1, P1 status post approximately 2 weeks ago. She presents today after new onset of significant pelvic cramping. 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 She took some Tylenol and this did bring her down to a manageable level although still very painful. She came to the ER today and had an ultrasound which showed approximately 4 cm likely clot in the lower uterine segment. She denies fever or chills, although says last night with significant pain may have had some slight chills. No dysuria. No flank pain. Breast-feeding going well. Bonding with baby. All other symptoms reviewed and were negative except per HPI. PMH Unremarkable PSH Denies previous surgeries SH Denies tobacco alcohol, drugs Allergies NKDA Medications Ibuprofen and Tylenol as needed for pain Physical exam: General: Alert, oriented, no acute distress Head: Normal cephalic atraumatic Eyes: PERRLA, extraocular motions intact. Respiratory: Normal rate of respiration. No accessory muscle use, normal respiratory effort. Cardiovascular: Regular rate and rhythm Abdomen: Soft, moderately tender to deep palpation, especially suprapubic. Uterus is firm and low in pelvis Extremities: Normal range of motion Neuro: Oriented x3. Normal movements Psych: Appropriate mood and affect. Normal judgment and insight Transvaginal ultrasound: Normal-sized uterus, endometrial echo measuring 11.4 mm, 4 cm mass in the lower uterine segment. Plan 22-year-old G1, P1 status post with subinvolution of bleeding versus retained clot. 1. Subinvolution bleeding -Only a small amount of bleeding, but has a significant size clot in her lower uterine segment. We will give Methergine 200 mcg IV today followed by 3 oral doses at home. -Warned patient about passing a clot and she should expect likely a large clot passage and not be worried about this. -Should contact us for fever, chills, worsening pain. Will consider antibiotics if fever or leukocytosis develop in addition to worsening pain. No section or prolonged rupture. -Discussed that this does not seem likely to be retained placenta given its location in the lower uterine segment and lack of vascularity. While her endometrial echo is slightly thickened at 11, this can be unpredictable in the period and would be explained by subinvolution of bleeding. Her cramping pain that is not consistent points away from uterine infection, although still is a concern. WBC likely normal . -Patient to call with worsening symptoms or return to ED.
[2022-07-10 12:14] VITALS: BP 122/71
== END 2022-07-10 12:14 | disposition home or self-care (01) ==
LOC: ED 06:45
DX: O90.89 Other complications of the puerperium, not elsewhere classified (principal); R10.31 Right lower quadrant pain; R11.0 Nausea
CPT/HCPCS: 36415; 76705; 76830; 76856; 80053; 81001; 81025; 83690; 85025; 93975; 96372; 96374; 96375; 99284; J2210; 81003; 87086

== ENCOUNTER 2022-12-30 08:00 | Outpatient (CLI) | payer OTHER ==
[2022-12-30 16:16] LABS: BILIRUBIN,URINE NEGATIVE (NEGATIVE); GLUCOSE, URINE (UA) NEGATIVE (NEGATIVE); KETONES,URINE (UA) NEGATIVE (NEGATIVE); LEUKOCYTE ESTERASE, URINE NEGATIVE (NEGATIVE); NITRITE,URINE NEGATIVE (NEGATIVE); OCCULT BLOOD,URINE NEGATIVE (NEGATIVE); PH,URINE 7.5 PH (5.0-7.5); PROTEIN,URINE NEGATIVE (NEGATIVE); UROBILINOGEN,URINE 1 (NORMAL) E.U./dL (NORMAL)
[2022-12-30 16:19] LABS: CLARITY,URINE CLOUDY (CLEAR)
[2022-12-30 16:29] LABS: RBC,URINE None Seen /HPF (0-5); SQUAMOUS EPITHELIAL CELL,UR RARE Squamous (<= Few); WBC,URINE 0-3 /HPF (0-5)
[2022-12-30 16:30] LABS: AMORPHOUS SEDIMENT,UR Moderate /LPF; BACTERIA,URINE Few /HPF (None Seen)
== END 2022-12-30 23:59 | disposition home or self-care (01) ==
LOC: LAB.WC 08:00
PROVIDERS: ATTEND Obstetrics & Gynecology
DX: Z34.90 Encounter for supervision of normal pregnancy, unspecified, unspecified trimester (principal)
CPT/HCPCS: 81001; 87086

== ENCOUNTER 2023-01-12 14:14 | Outpatient (CLI) | payer OTHER ==
[2023-01-12 17:52] LABS: BASOPHILS % (AUTO) 0.5 %; EOSINOPHILS % (AUTO) 0.5 %; HCT - HEMATOCRIT 39.6 % (37.0-47.0); HGB - HEMOGLOBIN 13.1 g/dL (12.0-16.0); LYMPHOCYTES % (AUTO) 23.2 %; MEAN CORPUSCULAR HEMOGLOBIN 29.3 pg (27.0-31.0); MEAN CORPUSCULAR HGB CONC 33.1 g/dL (32.0-36.0); MEAN CORPUSCULAR VOLUME 88.6 fL (81.0-99.0); MEAN PLATELET VOLUME 10.8 fL (7.9-10.8); MONOCYTES # (AUTO) 0.5 10^3/uL (0.0-1.0); MONOCYTES % (AUTO) 5.7 %; NEUTROPHILS # (AUTO) 6.1 10^3/uL (1.5-6.6); NEUTROPHILS % (AUTO) 69.9 %; PLT - PLATELET COUNT 323 10^3/uL (130-450); RED BLOOD COUNT 4.47 10^6/uL (4.20-5.40); RED CELL DISTRIBUTION WIDTH 12.6 % (12.0-15.0); WHITE BLOOD COUNT 8.7 x10^3/uL (4.8-10.8)
[2023-01-13 01:08] LABS: HBsAG SCREEN Negative (Negative)
[2023-01-13 04:09] LABS: HCV AB Non Reactive (Non Reactive); HIV SCREEN 4TH GENERATION Non Reactive (Non Reactive)
[2023-01-13 06:11] LABS: RPR Non Reactive (Non Reactive)
[2023-01-13 09:10] LABS: VARICELLA-ZOSTER AB IGG 1217 index (Immune >165)
== END 2023-01-12 14:15 | disposition home or self-care (01) ==
LOC: LAB.N 14:14
PROVIDERS: ATTEND Obstetrics & Gynecology
DX: Z34.90 Encounter for supervision of normal pregnancy, unspecified, unspecified trimester (principal)
CPT/HCPCS: 36415; 85025; 86592; 86762; 86787; 86803; 86850; 86900; 86901; 87340; 87389

== ENCOUNTER 2023-03-15 15:01 | Outpatient (CLI) | payer OTHER ==
[2023-03-17 21:07] LABS: AFP MOM 0.75 (.); DIA MOM 0.73 (.); DIA VALUE 124.48 pg/mL (.); DSR (BY AGE) 1 IN 1052 (.); DSR (SECOND TRIMESTER) 1 IN 10000 (.); GEST. AGE ON COLLECTION DATE 17.3 WEEKS (.); GESTAT. AGE METHOD As provided (.); HCG MOM 0.78 (.); INSULIN DEP DIABETES No (.); MATERNAL AGE AT EDD 24.5 yr (.); MULTIPLE GESTATION No (.); OPEN SPINA BIFIDA RISK 1 IN 10000 (.); RACE Caucasian (.); RESULTS Report (.); TEST RESULTS *Screen Negative* (.); TRISOMY 18 RISK Not increased (.); UE3 MOM 1.09 (.); UE3 VALUE 1.45 ng/mL (.); WEIGHT 125 lbs (.)
== END 2023-03-15 15:02 | disposition home or self-care (01) ==
LOC: LAB 15:01
PROVIDERS: ATTEND Nurse Practitioner
DX: Z34.90 Encounter for supervision of normal pregnancy, unspecified, unspecified trimester (principal); Z36.89 Encounter for other specified antenatal screening
CPT/HCPCS: 36415; 81511

== ENCOUNTER 2023-04-08 16:06 | Outpatient (CLI) | payer OTHER ==
--- NOTE | 2023-04-09 18:10 | Ultrasound Report ---
PROCEDURE: OB Detailed Eval INDICATIONS: SUPERVISION OF OUTSIDE/PRIOR DATING DATA: Last menstrual period (LMP): 11/05/2022. LMP-based estimated date of delivery (RILEY): 08/12/2023. First dating scan (date and location): 01/11/2023. Estimated date of delivery (RILEY) from first dating scan: 08/21/2023. The below data below was generated using the working RILEY of 08/21/2023 TECHNIQUE: Ultrasound of the gravid uterus was performed and recorded. COMPARISON: None. FINDINGS: General: A single live intrauterine gestation is present. Presentation: Variable Placenta: Placental position is anterior without previa. Amniotic fluid index: 13.2 cm, 36 percentile for gestational age. heart rate: 147 beats per minute. Maternal cervical canal: 5.0 cm long; normal length is 2.5 cm or more. biometrics: Biparietal diameter: 4.7 cm, 20 week 1 day, 27.2 percentile Head circumference: 18.6 cm, 21 week 0 day , 54.8 percentile Abdominal circumference: 15.9 cm, 21 week 1 day , 36 percentile Femur length: 3.5 cm, 21 week 1 day, 55 percentile Estimated gestational age by working dates: 20 week 5 day Composite gestational age by current ultrasound: 20 week 6 day Estimated weight and percentile: 395.8 g, 64.1 percentile Measurement variability in biometric dating: +/- 10 days from 12-20 weeks gestation, +/- 2 weeks from 20-30 weeks gestation, +/- 3 weeks at 30 weeks gestation or more. Anatomic survey: Neuro: Ventricles are non-dilated at less than 10 mm. Cisterna magna is normal at 3-11 mm. Cerebel lum is normal in size and morphology. Nuchal skin fold: Normal at less than 6 mm between 14-20 weeks gestational age. Face: Nose and lips, facial profile are normal. Spine: No evidence for spina bifida. Heart: 4-chambered heart is present, with normal ventricular outflow tracts. Diaphragm: Diaphragm is intact. Stomach: Left-sided stomach is present. Kidneys: No hydronephrosis. Normal is less than 5 mm in 2nd trimester, less than 7 mm in 3rd trimester. Cord: 3-vessel cord has orthotopic insertion. Bladder: Normal in size. Extremities: All 4 extremities identified. Other: Not applicable. IMPRESSION: Single live intrauterine consistent with 20 week 6 day with gestation by current ultrasound normal anatomic survey Reviewed by: Jerod Story MD on 04/09/2023 5:09 PM [facility] Approved by: Jerod Story MD on 04/09/2023 5:09 PM [facility] Station ID: [id number]
== END 2023-04-08 16:07 | disposition home or self-care (01) ==
LOC: DI 16:06
PROVIDERS: ATTEND Nurse Practitioner
DX: Z34.92 Encounter for supervision of normal pregnancy, unspecified, second trimester (principal); Z36.89 Encounter for other specified antenatal screening

== ENCOUNTER 2023-04-14 11:45 | Outpatient (CLI) | payer OTHER ==
[2023-04-14 12:09] VITALS: BP 110/65; O2SAT 100
--- NOTE | 2023-04-14 12:38 | PROVIDER PROGRESS NOTE ---
- HPI Chief Complaint: Other (Patient is a 23-year-old -0-0-1 at 21 weeks and 5 days complaining of left lower quadrant pain and cramping. Patient states she is concerned because she had irregular contractions with her first delivery and presented at 6 cm. This has been uncomplicated. She denies vag bleeding) Current : Vital Signs Temperature 97.7 F 04/14/23 12:01 Heart Rate 97 04/14/23 12:01 Respiratory Rate 15 04/14/23 12:01 Blood Pressure 110/65 04/14/23 12:01 O2 Saturation 100 04/14/23 12:01 Temperature 97.7 F 04/14/23 12:01 Heart Rate 97 04/14/23 12:01 Respiratory Rate 15 04/14/23 12:01 Blood Pressure 110/65 04/14/23 12:01 O2 Saturation 100 04/14/23 12:01 If not protocol: Oxygen Flow, liters/minute - Exam Gen: NAD Abdomen: Gravid, non-tender Bedside ultrasound: cephalic presentation, male Cervical length 4.6 cm FHT 140 too early for NST - Procedures NST Procedure: NST Procedure Start Time 08:04 Stop Time 08:30 - Plan Plan: Reassuring ultrasound and reassuring cervical length. Patient discharged home. Counseled to return for worsening pain, vaginal bleeding, contractions, leakage of fluid, or any other concerns.
[2023-04-14 12:54] LABS: BILIRUBIN,URINE NEGATIVE (NEGATIVE); GLUCOSE, URINE (UA) NEGATIVE (NEGATIVE); KETONES,URINE (UA) NEGATIVE (NEGATIVE); LEUKOCYTE ESTERASE, URINE NEGATIVE (NEGATIVE); NITRITE,URINE NEGATIVE (NEGATIVE); OCCULT BLOOD,URINE LARGE (NEGATIVE); PROTEIN,URINE NEGATIVE (NEGATIVE); UROBILINOGEN,URINE 0.2 (NORMAL) E.U./dL (NORMAL)
[2023-04-14 13:11] LABS: BACTERIA,URINE None Seen /HPF (None Seen); CLARITY,URINE CLOUDY (CLEAR); EPITHELIAL CELLS,UR RARE Transitional /HPF (<= Few); SQUAMOUS EPITHELIAL CELL,UR FEW Squamous (<= Few); WBC,URINE 0-3 /HPF (0-5)
[2023-04-14 13:12] LABS: AMORPHOUS SEDIMENT,UR Few /LPF
== END 2023-04-14 13:10 | disposition home or self-care (01) ==
LOC: WFO 11:45 → FBP 11:46 → WFO 13:10
PROVIDERS: ATTEND Obstetrics & Gynecology Obstetrics
DX: O99.891 Other specified diseases and conditions complicating pregnancy (principal); R10.32 Left lower quadrant pain; Z3A.21 21 weeks gestation of pregnancy
CPT/HCPCS: 81001; 87086; 99214; 99215

== ENCOUNTER 2023-04-23 11:28 | Outpatient (CLI) | payer OTHER ==
[2023-04-23 11:46] LABS: BILIRUBIN,URINE NEGATIVE (NEGATIVE); GLUCOSE, URINE (UA) NEGATIVE (NEGATIVE); KETONES,URINE (UA) TRACE mg/dL (NEGATIVE); LEUKOCYTE ESTERASE, URINE TRACE (NEGATIVE); NITRITE,URINE NEGATIVE (NEGATIVE); OCCULT BLOOD,URINE NEGATIVE (NEGATIVE); PROTEIN,URINE NEGATIVE (NEGATIVE); UROBILINOGEN,URINE 0.2 (NORMAL) E.U./dL (NORMAL)
[2023-04-23 12:02] LABS: BACTERIA,URINE None Seen /HPF (None Seen); CLARITY,URINE CLEAR (CLEAR); CRYSTALS,URINE 0-2 Uric Acid /LPF; RBC,URINE None Seen /HPF (0-5); SQUAMOUS EPITHELIAL CELL,UR MOD Squamous (<= Few); WBC,URINE 0-3 /HPF (0-5)
== END 2023-04-23 11:29 | disposition home or self-care (01) ==
LOC: LAB 11:28
PROVIDERS: ATTEND Nurse Practitioner
DX: R31.9 Hematuria, unspecified (principal)
CPT/HCPCS: 81001; 87086

== ENCOUNTER 2023-06-01 15:10 | Outpatient (CLI) | payer OTHER ==
[2023-06-01 17:33] LABS: BASOPHILS % (AUTO) 0.2 %; EOSINOPHILS # (AUTO) 0.1 10^3/uL (0.0-0.7); HCT - HEMATOCRIT 34.7 % (37.0-47.0); HGB - HEMOGLOBIN 11.3 g/dL (12.0-16.0); LYMPHOCYTES # (AUTO) 1.8 10^3/uL (1.5-3.5); LYMPHOCYTES % (AUTO) 20.2 %; MEAN CORPUSCULAR HEMOGLOBIN 30.7 pg (27.0-31.0); MEAN CORPUSCULAR HGB CONC 32.6 g/dL (32.0-36.0); MEAN CORPUSCULAR VOLUME 94.3 fL (81.0-99.0); MEAN PLATELET VOLUME 10.1 fL (7.9-10.8); MONOCYTES # (AUTO) 0.5 10^3/uL (0.0-1.0); NEUTROPHILS # (AUTO) 6.2 10^3/uL (1.5-6.6); NEUTROPHILS % (AUTO) 71.8 %; PLT - PLATELET COUNT 274 10^3/uL (130-450); RED BLOOD COUNT 3.68 10^6/uL (4.20-5.40); RED CELL DISTRIBUTION WIDTH 13.2 % (12.0-15.0); WHITE BLOOD COUNT 8.7 x10^3/uL (4.8-10.8)
[2023-06-01 22:23] LABS: ESTIMATED AVERAGE GLUCOSE 88 mg/dL (70-100); HEMOGLOBIN A1c% 4.7 % (4.27-6.07)
== END 2023-06-01 15:11 | disposition home or self-care (01) ==
LOC: LAB.N 15:10
PROVIDERS: ATTEND Nurse Practitioner
DX: O99.012 Anemia complicating pregnancy, second trimester (principal); D50.9 Iron deficiency anemia, unspecified; Z67.91 Unspecified blood type, Rh negative; Z3A.25 25 weeks gestation of pregnancy
CPT/HCPCS: 36415; 82728; 83036; 85025; 86850

== ENCOUNTER 2023-07-05 08:00 | Outpatient (CLI) | payer OTHER ==
[2023-07-05 23:26] LABS: BACTERIAL VAGINOSIS DNA NEGATIVE (NEGATIVE); CANDIDA GLABRATA DNA NEGATIVE (NEGATIVE); CANDIDA GROUP DNA POSITIVE (NEGATIVE); CANDIDA KRUSEI DNA NEGATIVE (NEGATIVE); TRICHOMONAS VAGINALIS DNA NEGATIVE (NEGATIVE)
== END 2023-07-05 23:59 | disposition home or self-care (01) ==
LOC: LAB.WC 08:00
PROVIDERS: ATTEND Nurse Practitioner
DX: N89.8 Other specified noninflammatory disorders of vagina (principal)
CPT/HCPCS: 81514

== ENCOUNTER 2023-07-13 08:57 | Outpatient (CLI) | payer OTHER ==
--- NOTE | 2023-07-13 16:46 | Ultrasound Report ---
PROCEDURE: OB Follow up INDICATIONS: LOW WEIGHT GAIN IN , ANEMIA OUTSIDE/PRIOR DATING DATA: Last menstrual period (LMP): 11/05/2022. LMP-based estimated date of delivery (RILEY): 08/12/2023. First dating scan (date and location): 01/11/2023. Estimated date of delivery (RILEY) from first dating scan: 08/21/2023. TECHNIQUE: Real-time scanning was performed of the fetus, with image documentation and biometric measurements. Endovaginal scanning: Not performed. COMPARISON: 06/09/2022 FINDINGS: General: A single living intrauterine gestation is present. Presentation: Cephalic Placenta: Placental position is anterior, without previa. Amniotic fluid index: 12.2 cm, within normal limits for gestational age. 30th percentile for gestat ional age. Largest vertical pocket measured 4.5 cm. heart rate: 123 beats per minute. Maternal cervical canal: Maternal cervix not well visualized secondary to advanced gestational age an d positioning. biometrics: Biparietal diameter: 8.3 cm, 33 weeks and 3 days (22nd percentile) Head circumference: 30.2 cm, 33 weeks and 4 days (5.5 percentile) Abdominal circumference: 31.6 cm, 35 weeks and 4 days (85th percentile) Femur length: 6.8 cm, 35 weeks and 0 days (58th percentile). Estimated gestational age from initial scan: 34 weeks and 3 days Composite gestational age from present scan: 34 weeks and 3 days Estimated weight and percentile: 2570 g which correlates with the 63rd percentile Measurement variability in biometric dating: +/- 10 days from 12-20 weeks gestation, +/- 2 weeks from 20-30 weeks gestation, +/- 3 weeks at 30 weeks gestation or more. Other: Not applicable. IMPRESSION: Single living intrauterine gestation with estimated sonographic gestational age of appro ximately 34 weeks and 3 days. Normal interval growth has occurred. Estimated weight is approximately 2570 g which correlates with the 63rd percentile for gestatio nal age. Reviewed by: Fish Borrego MD on 07/13/2023 4:44 PM PDT Approved by: Fish Borrego MD on 07/13/2023 4:44 PM PDT Station ID: [id number]
== END 2023-07-13 08:58 | disposition home or self-care (01) ==
LOC: DI 08:57
PROVIDERS: ATTEND Nurse Practitioner
DX: O26.13 Low weight gain in pregnancy, third trimester (principal); O99.013 Anemia complicating pregnancy, third trimester; D50.9 Iron deficiency anemia, unspecified; Z3A.34 34 weeks gestation of pregnancy

== ENCOUNTER 2023-07-22 08:00 | Outpatient (CLI) | payer OTHER | END 2023-07-22 23:59 | disposition home or self-care (01) | LOC: LAB.WC 08:00 | PROVIDERS: ATTEND Obstetrics & Gynecology | DX: Z36.85 Encounter for antenatal screening for Streptococcus B (principal) | CPT/HCPCS: 87797 ==

== ENCOUNTER 2023-08-16 18:57 | Inpatient (IN) | payer OTHER ==
[2023-08-16 20:18] LABS: BASOPHILS % (AUTO) 0.2 %; EOSINOPHILS # (AUTO) 0.1 10^3/uL (0.0-0.7); EOSINOPHILS % (AUTO) 0.8 %; HCT - HEMATOCRIT 33.2 % (37.0-47.0); HGB - HEMOGLOBIN 10.7 g/dL (12.0-16.0); LYMPHOCYTES # (AUTO) 1.7 10^3/uL (1.5-3.5); LYMPHOCYTES % (AUTO) 27.7 %; MEAN CORPUSCULAR HEMOGLOBIN 28.3 pg (27.0-31.0); MEAN CORPUSCULAR HGB CONC 32.2 g/dL (32.0-36.0); MEAN CORPUSCULAR VOLUME 87.8 fL (81.0-99.0); MEAN PLATELET VOLUME 10.6 fL (7.9-10.8); MONOCYTES # (AUTO) 0.6 10^3/uL (0.0-1.0); MONOCYTES % (AUTO) 10.1 %; NEUTROPHILS # (AUTO) 3.8 10^3/uL (1.5-6.6); NEUTROPHILS % (AUTO) 60.6 %; PLT - PLATELET COUNT 222 10^3/uL (130-450); RED BLOOD COUNT 3.78 10^6/uL (4.20-5.40); RED CELL DISTRIBUTION WIDTH 14.7 % (12.0-15.0); WHITE BLOOD COUNT 6.2 x10^3/uL (4.8-10.8)
[2023-08-16] MEDS ORDERED: diphenhydrAMINE INJ 50 MG/ML VIAL IVP PRN (20:33)
[2023-08-16] MEDS ORDERED: miSOPROStoL 200 MCG TABLET PR PRN (20:33)
[2023-08-16] MEDS ORDERED: CARBOPROST TROMETHAMINE 250 MCG/ML VIAL IM PRN (20:33)
[2023-08-16] MEDS ORDERED: TERBUTALINE 1 MG/ML VIAL SUBQ PRN (20:33)
[2023-08-16] MEDS ORDERED: LACTATED RINGERS 1,000 ML IV PRN (20:33)
[2023-08-16] MEDS ORDERED: METHYLERGONOVINE 0.2 MG/ML VIAL IM PRN (20:33)
[2023-08-16] MEDS ORDERED: SODIUM CHLORIDE FLUSH 0.9% 10 ML SYRINGE IVP PRN (20:33)
[2023-08-16] MEDS ORDERED: fentaNYL 100 MCG/2 ML VIAL IVP PRN (20:33)
[2023-08-16] MEDS ORDERED: miSOPROStoL 200 MCG TABLET BC PRN (20:33)
[2023-08-16] MEDS ORDERED: TRANEXAMIC ACID IN NACL 1,000 MG/100 ML BAG IV PRN (20:33)
[2023-08-16] MEDS ORDERED: lidocaine 1% 20 ML MDV ID PRN (20:33)
[2023-08-16] MEDS ORDERED: OXYTOCIN 10 UNIT/ML VIAL IM PRN (20:33)
[2023-08-16] MEDS ORDERED: METOCLOPRAMIDE 10 MG/2 ML VIAL IVP PRN (20:51)
--- NOTE | 2023-08-16 20:51 | HISTORY & PHYSICAL EXAMINATION ---
Admit History - Visit Reason Visit Reason: Other (Scheduled IOL (Social- Childcare)) - : 2 Parity: 1 Care: positive: [facility] Complications This : positive: Other (Rh NEG Iron deficiency anemia) Smoking Status: Never smoker - Mother's Labs Mother's Blood Type: positive: O Mother's RH: positive: Negative GBS: positive: Group B Step Negative Rubella Status: positive: Immune - Other Maternal History Other Maternal History: Med: Denies Surg: Denies Fam: Noncontributory Social: , denies WILFREDO Rubella immune VZV: immune HepB neg Hep C neg RPR NR HIV neg Pap 03/26/21 normal HSV denies self/partner Flu:02/15/23 Covid:recvd Pfizer initial set GC/CT: negative Genetic testing:normal QUAD FAS: Placenta: anterior without previa Cord: 3VC TAYLOR: 13.2 cm 36%ile EFW: 395.8g 64.1%ile 50gm OGCT: A1C 4.7 TDAP: 05/24/2023 Breast Pump: declines 2nd Antibody screen: 06/01/2023 NEGATIVE ; RHOGAM GIVEN 06/07/2023 ( O neg) 3rd trimester CBC: PLT 274 HCT 34.7 HGB 11.3, ferritin 3.4 US done: biometrics: Biparietal diameter: 8.3 cm, 33 weeks and 3 days (22nd percentile) Head circumference: 30.2 cm, 33 weeks and 4 days (5.5 percentile) Abdominal circumference: 31.6 cm, 35 weeks and 4 days (85th percentile) Femur length: 6.8 cm, 35 weeks and 0 days (58th percentile). Estimated gestational age from initial scan: 34 weeks and 3 days Composite gestational age from present scan: 34 weeks and 3 days Estimated weight and percentile: 2570 g which correlates with the 63rd percentile 07/13/2023 GBS:Negative - HPI Current EDU 08/21/23 Gestation 39 Weeks and 2 Days 2 Vital Signs Temperature 98.8 F 08/16/23 19:01 Heart Rate 100 08/16/23 19:01 Respiratory Rate 18 08/16/23 19:01 Blood Pressure 136/83 H 08/16/23 19:01 Temperature 98.8 F 08/16/23 19:01 Heart Rate 100 08/16/23 19:01 Respiratory Rate 18 04/22/24 19:01 Blood Pressure 136/83 H 08/16/23 19:01 O2 Saturation If not protocol: Oxygen Flow, liters/minute - NST Procedure NST Procedure Start Time 08:04 Stop Time 08:30 - Results and Plan Plan: Direct admission for IOL, no NST Cat 1 tracing Meds/Allgy - Allergies Allergies/Adverse Reactions: Allergies Allergy/AdvReac Type Severity Reaction Status Date / Time No Known Allergies Allergy Unknown Verified 07/10/22 07:27 Review of Systems - All Other Systems All Other Systems: reports: Reviewed and negative Physical - Abdominal Exam Vital Signs: Temp Pulse Resp BP Pulse Ox O2 Flow Rate 98.8 F 100 18 136/83 H 08/16/23 19:01 08/16/23 19:01 08/16/23 19:01 08/16/23 19:01 Contraction Intensity: positive: Mild Uterine Resting Tone: positive: Soft - Monitoring Heart Rate Baseline: 120 Strip Review: positive: Category I - Presentation Presentation: positive: Vertex (EFW 3200g Placenta anterior) - Vaginal Exam Membranes: positive: Membranes intact Dilation (in cm): 2 Effacement (%): 50 Station: positive: -3 Cervical Position: positive: Midposition - Speculum Exam Speculum Exam Performed: positive: No Plan for Labor - Plan For Labor I expect patient to be DC'd or transferred within 96 hours.: Yes Plan for Labor: 23yo at 39.2w by 8w US admitted for scheduled induction for social/childcare reasons - Cat 1 tracing - Misoprostol 50mcg BC ordered, plan to follow with Pitocin - complicated by iron deficiency anemia and Rh negative - Continue to monitor, anticipate tomorrow
[2023-08-16] MEDS: CALCIUM CARBONATE CHEW 500 MG TABLET PO PRN (20:56)
[2023-08-16] MEDS ORDERED: OXYTOCIN/SODIUM CHLORIDE 500 ML IV SCH (21:00)
[2023-08-16] MEDS ORDERED: SODIUM CHLORIDE FLUSH 0.9% 10 ML SYRINGE IVP SCH (21:00)
[2023-08-16] MEDS: miSOPROStoL 100 MCG TABLET BC SCH (21:18)
[2023-08-16] MEDS: ONDANSETRON ODT 4 MG TABLET PO PRN (22:41)
[2023-08-17] MEDS: ZOLPIDEM 5 MG TABLET PO PRN (00:40)
[2023-08-17] MEDS ORDERED: ROPIVACAINE 0.2% 200 MG/100 ML BAG EP ONE (04:46)
[2023-08-17] MEDS ORDERED: LIDOCAINE 2%-EPI 1:100000 20 ML MDV ONE (04:53)
[2023-08-17] MEDS: LACTATED RINGERS 1,000 ML IV SCH (05:02)
[2023-08-17] MEDS ORDERED: ePHEDrine 50 MG/ML VIAL IVP PRN (05:39)
[2023-08-17] MEDS ORDERED: ROPIVACAINE 0.2% 200 MG/100 ML BAG EP PRN (05:39)
[2023-08-17] MEDS ORDERED: NALOXONE 0.4 MG/ML VIAL IVP PRN (05:39)
--- NOTE | 2023-08-17 05:39 | ANESTHESIA ---
Pre-Anesthesia VS, & Labs - Diagnosis active labor - Procedure vaginal delivery Vital Signs: Temp Pulse Resp BP Pulse Ox O2 Flow Rate 37.1 C 100 18 136/83 H 08/16/23 19:01 08/16/23 19:01 08/16/23 19:01 08/16/23 19:01 Height: 5 ft 4 in Weight (kg): 72.575 kg Body Mass Index: 27.4 BMI Classification: Overweight - NPO Other (clear liquids) - Is Patient ?: Yes - Lab Results Current Lab Results: Laboratory Tests 08/16/23 20:23: Blood Type O NEGATIVE, Antibody Screen POSITIVE, Antibody Identification See Comments, TIARA, IgG Specific Not Reportable, TIARA, Polyspecific NEGATIVE, TIARA, C3d Specific Not Reportable 08/16/23 20:20: WBC 6.2, RBC 3.78 L, Hgb 10.7 L, Hct 33.2 L, MCV 87.8, MCH 28.3, MCHC 32.2, RDW 14.7, Plt Count 222, MPV 10.6, Neut # (Auto) 3.8, Lymph # (Auto) 1.7, [place] # (Auto) 0.6, Eos # (Auto) 0.1, Baso # (Auto) 0.0, Absolute Nucleated RBC 0.00, Nucleated RBC % 0.0 Lab results reviewed: Yes Fish Bones: 08/16/23 20:20 Home Medications and Allergies Active Medications Calcium Carbonate/Glycine (Calcium Carbonate Chew 500 Mg Tablet) 1,000 mg PO Q6HR PRN PRN Reason: Heartburn Last Admin: 08/17/23 03:31 Dose: 1,000 mg Carboprost Tromethamine (Carboprost Tromethamine 250 Mcg/Ml Vial) 250 mcg IM .ONCE PRN PRN Reason: Hemorrhage Diphenhydramine HCl (Diphenhydramine Inj 50 Mg/Ml Vial) 25 mg IVP Q6H PRN PRN Reason: Allergy Symptoms Fentanyl (Fentanyl 100 Mcg/2 Ml Vial) 50 mcg IVP Q1H PRN PRN Reason: Severe Pain (score 7-10) Lactated Ringer's (Lr) 500 mls @ 999 mls/hr IV PRN PRN PRN Reason: NEEDED PER PROVIDER ORDERS Oxytocin/Sodium Chloride (Pitocin/Sodium Chloride) 500 mls @ 999 mls/hr IV PRN PRN; Protocol PRN Reason: POST- HEMORR PREVENTION Tranexamic Acid (Tranexamic 1,000 Mg/100ml-Nacl) 1,000 mg in 100 mls @ 600 mls/hr IV Q30M PRN PRN Reason: EBL >1200mL and within 3hr Lactated Ringer's (Lr) 1,000 mls @ 125 mls/hr IV .Q8H ABHISHEK Last Admin: 08/17/23 05:02 Dose: 125 mls/hr Oxytocin/Sodium Chloride (Pitocin/Sodium Chloride) 500 mls @ 2 mls/hr IV TITR ABHISHEK; Protocol Lidocaine HCl (Lidocaine 1% 20 Ml Mdv) 20 ml ID .ONCE PRN PRN Reason: PERINEAL REPAIR Stop: 08/19/23 20:33 Methylergonovine Maleate (Methylergonovine 0.2 Mg/Ml Vial) 0.2 mg IM .ONCE PRN PRN Reason: Hemorrhage Metoclopramide HCl (Metoclopramide 10 Mg/2 Ml Vial) 5 mg IVP Q6HR PRN PRN Reason: Nausea / Vomiting Misoprostol (Misoprostol 200 Mcg Tablet) 600 mcg BC .ONCE PRN PRN Reason: Hemorrhage Misoprostol (Misoprostol 200 Mcg Tablet) 800 mcg VA .ONCE PRN PRN Reason: Hemorrhage Misoprostol (Misoprostol 100 Mcg Tablet) 50 mcg BC ONCE ABHISHEK Stop: 08/21/23 21:01 Last Admin: 08/16/23 21:18 Dose: 50 mcg Ondansetron HCl (Ondansetron Odt 4 Mg Tablet) 4 mg PO Q4HR PRN PRN Reason: Nausea / Vomiting Last Admin: 08/16/23 22:41 Dose: 4 mg Oxytocin (Oxytocin 10 Unit/Ml Vial) 10 unit IM .ONCE PRN PRN Reason: Step One if no IV access. Sodium Chloride (Sodium Chloride Flush 0.9% 10 Ml Syringe) 10 ml IVP PRN PRN PRN Reason: NEEDED PER PROVIDER ORDERS Sodium Chloride (Sodium Chloride Flush 0.9% 10 Ml Syringe) 10 ml IVP Q8H ABHISHEK Terbutaline Sulfate (Terbutaline 1 Mg/Ml Vial) 0.25 mg SUBQ .ONCE PRN PRN Reason: Tachystole Zolpidem Tartrate (Zolpidem 5 Mg Tablet) 5 mg PO QPM PRN PRN Reason: Insomnia Last Admin: 08/17/23 00:40 Dose: 5 mg Allergies/Adverse Reactions: Allergies Allergy/AdvReac Type Severity Reaction Status Date / Time No Known Allergies Allergy Unknown Verified 07/10/22 07:27 Anes History & Medical History - Anesthetic History Family history of Anesthesia Complications: Denies Family history of Malignant Hyperthermia: Denies - Medical History Cardiovascular: reports: None Pulmonary: reports: None Gastrointestinal: reports: None Urinary: reports: None Neuro: reports: None Musculoskeletal: reports: None Endocrine/Autoimmune: reports: None Blood Disorders: reports: Anemia Skin: reports: None Smoking Status: Never smoker Psychosocial: reports: No issues indicated History of Cancer?: No - Obstetrical History : 2 Parity: 1 Complications: reports: Other (Rh NEG Iron deficiency anemia) Exam General: Alert, Oriented x3, Cooperative, No acute distress Dental: WNL Mouth Openin Fingerbreadth Neck Mobility: Normal Mallampati classification: II Thyromental Distance: 4-6 cm Mental/Cognitive Status: Alert/Oriented X3, Normal for patient Plan Anesthesia Type: Epidural Consent for Procedure(s) Verified and Reviewed: Yes Code Status: Attempt Resuscitation ASA classification: 2-Mild systemic disease Is this case an emergency?: No
[2023-08-17] MEDS: OXYTOCIN/SODIUM CHLORIDE 500 ML IV PRN (07:59)
--- NOTE | 2023-08-17 08:19 | DELIVERY NOTE ---
Delivery Note - Labor Labor: positive: Augmented by ARM - Infant Delivery Method Infant Delivery Method: positive: Spontaneous vaginal delivery - Cervical Ripening Method Cervical Ripening Method: positive: Misoprostil (Misoprostol 50mcg x1) - Presentation Presentation: positive: Vertex, POP - left occiput anterior - Nuchal Cord Nuchal Cord: positive: Present (x1, reduced after head delivery) - Amniotic Fluid Description Amniotic Fluid Description: positive: Clear (AROM 08/17/23 0700) - Episiotomy Type Episiotomy Type: positive: None - Laceration Laceration: positive: 2nd degree (Perineal laceration repaired with 3-0 rapide in usual fashion) - Suture Suture Type: positive: Vicryl Suture Size: positive: 3-0 - Delivery Outcome Delivery Outcome: positive: Livebirth - [place]: positive: Placed in direct skin contact with mother, Bulb syringe, Stimulated, Warmed, Sharon used sex: positive: Male - Cord Cord: positive: 3 vessels - Estimated Blood Loss Estimated Blood Loss (in cc): 100 - Delivery Comments (Free Text/Narrative) Delivery Comments (Free Text/Narrative): SVE 8/100/0, AROM 0700, clear. Shortly after she felt pressure and 10cm. Pushing with good efforts. Head delivered POP. Nuchal cord x1, reduced after head delivery. Body delivered with ease and baby placed on mother's abdomen. Delayed cord clamping. Cord blood collected. Placenta delivered spontaneously, intact, 3vc. 2cm second degree perineal laceration noted, repaired with 3-0 vicryl in usual fashion. Hemostasis. Fundus firm. QBL 100cc. Tolerated delivery well, family bonding at bedside.
[2023-08-17] MEDS ORDERED: SIMETHICONE CHEW 80 MG TABLET PO PRN (08:25)
[2023-08-17] MEDS ORDERED: LACTATED RINGERS 1,000 ML IV SCH (09:00)
--- NOTE | 2023-08-17 09:15 | PHARMACY PROGRESS NOTE ---
- Best Possible Medication History Admit Date and Time: 08/16/232032 Processed by: Pharmacy Medications reviewed in ED?: No Medication History completed: Yes Patient Interview: Pt unable to participate Secondary Source(s): Physician records As the person ultimately responsible for medication therapy, providers are able to order a medication from an existing home medication list in [facility] via the "Reconcile Routine" prior to Confirmation of that medication by arch support technician. Such practice is discouraged except when the physician, in their clinical judgment, deems that a medical need exists for a medication without regard to previous use.
[2023-08-17] MEDS: DOCUSATE SODIUM 100 MG CAPSULE PO PRN (09:52)
[2023-08-17] MEDS: ACETAMINOPHEN 500 MG TABLET PO SCH (09:52)
[2023-08-17] MEDS: IBUPROFEN 800 MG TABLET PO SCH (09:53)
[2023-08-17] MEDS: IRON DEXTRAN 200 MG in SODIUM CHLORIDE 0.9% 100ML 100 ML IV ONE (14:19)
[2023-08-17] MEDS: RHO(D) IMMUNE GLOBULIN 300 MCG SYRINGE IVP ONE (15:05)
[2023-08-18 14:42] VITALS: BP 111/73; O2SAT 99
--- NOTE | 2023-08-18 14:42 | Labor Flowsheet ---
Labor Flowsheet Datetime Report Generated by CPN: 08/18/2023 14:42 Datetime: 08/18/2023 03:28 VITAL SIGNS NBP Sys/Rita/Mean (mmHg): 110 : 58 : 69 Pulse: 76 LaborFlag: Labor Datetime: 08/17/2023 07:58 Stage 2 Comments: placenta delivered Datetime: 08/17/2023 07:52 UTERINE ACTIVITY Monitor Mode: External Frequency (min): 2.5-4 Quality: Strong Duration (sec): 40-60 Pattern: Normal: <= 5 Contractions in 10 Minutes Resting Tone (Palpate): Relaxed ASSESSMENT A Monitor Mode: Telemetry FHR Baseline Rate : 125 Variability: Moderate 6-25 bpm Accelerations: None Decelerations: Late Category: Category II Datetime: 08/17/2023 07:45 Contraction Comments: pushing with contractions Datetime: 08/17/2023 07:44 SpO2 (%): 99 Datetime: 08/17/2023 07:40 STAGE 2 Pushing: Coached on Pushing; Urge to Push Pushing Position: Pushing with Contractions Pushing Progress: Descent with Pushing Datetime: 08/17/2023 07:23 VAGINAL EXAM Dilatation (cm): 10.0 Exam by: Dr. Cayabyab Vaginal Exam Comments: Complete Datetime: 08/17/2023 07:08 Membranes Ruptured Date/Time: 08/17/2023 06:59 MEDICATIONS Cervical Ripening Agents: Cytotec @ Datetime: 08/17/2023 07:02 FHR Baseline Changes: No Baseline Change Datetime: 08/17/2023 07:00 Respirations: 18 PAIN Pain Scale: 2 Pain Presence: Intermittent Pain Type: Dull; Contraction; Pressure Pain Location: Denies contraction pain but felt moreno insertion and last VE Pain Goal: 3 Pain Relief Measures: Epidural Given Pain Coping: Sleeping Datetime: 08/17/2023 06:59 Effacement (%): 100 Station: 0 Membrane Status: Ruptured Membranes Rupture Method: Artificial Amniotic Fluid Color: Clear Amniotic Fluid Amount: Moderate Amniotic Fluid Odor: None Datetime: 08/17/2023 06:50 COMMUNICATION Communication: Provider at Bedside (Annotations: Dr Nicoleyaoscar here to assess pt's progress) Notification Reason: Status Update; Status; Labor Status; Pain Datetime: 08/17/2023 06:46 Anesthesia Level Check: T4- Nipple Line Anesthesia Comments: HOB raised to 30degrees due to level of epidural Datetime: 08/17/2023 06:36 Monitor Interventions for UA: [place] Adjusted Datetime: 08/17/2023 06:35 Oxygen Method: Room Air Datetime: 08/17/2023 06:06 PATIENT CARE IV/Blood Work: IV Bolus Given ml @ 500 Patient Position/Activity: Right Lateral; Right Tilt Datetime: 08/17/2023 05:42 Pain Assessment Comments: resting Comfort Measures: Breathing/Relaxation; Family Support Datetime: 08/17/2023 05:30 Epidural Procedure Other: Pump Started Datetime: 08/17/2023 05:26 Epidural Procedure: Loading Dose Datetime: 08/17/2023 05:18 PROCEDURE TIME OUT Procedure Verify: Correct Patient Identity; Correct Side and Site are Marked; Accurate Procedure Co nsent Form; Correct Patient Position ANESTHESIA Anesthesia Plans: Epidural Datetime: 08/17/2023 05:12 Epidural Positioning: Sitting Datetime: 08/17/2023 05:07 Temperature (C): 37.0 Datetime: 08/17/2023 04:38 Comments: doppled through contraction Datetime: 08/17/2023 03:48 Pain Management: Comfort Measures Teaching Comments: nitrous use Datetime: 08/17/2023 02:27 Patient Care Comments: resting better Datetime: 08/17/2023 00:40 Medication Comments: Ambien 5 mg Datetime: 08/17/2023 00:31 Communication Comments: Pt requesting sleep aid, MD notified. Received orders for Ambien 5 mg PO QP M. Datetime: 08/17/2023 00:13 I/O Interventions: Up to BR Datetime: 08/16/2023 21:29 Headache: Denies Breath Sounds, Left: Clear and Equal Breath Sounds, Right: Clear and Equal Datetime: 08/16/2023 20:18 Vaginal Bleeding: None Cervix, Consistency: Soft Cervix, Position: Posterior Datetime: 08/16/2023 20:07 Stage of : Labor Hygiene: Oral Care Provider Reviewed Strip: Yes TEACHING Plan of Care: Plan of Care Discussed Unit Routine: [place] to Room; Call [place]; Unit Personnel; Handwashing Labor/Induction: Induction Related: Common Discomforts of Datetime: 08/16/2023 19:43 MATERNAL ASSESSMENT Level of Consciousness: Alert DTR's/Clonus: DTRs 2+ Nausea/Vomiting: Present RUQ Epigastric Pain: Denies
--- NOTE | 2023-08-18 20:28 | DISCHARGE SUMMARY ---
"Discharge Summary Admit Date: 08/17/23 Discharge Date: 08/18/23 Discharging Provider: Jeannette Padgett MD Code Status: Attempt Resuscitation - DIAGNOSES Admission Diagnoses: term , admitted for labor induction Discharge Diagnoses with Status of Each Condition: term delivered without complications - HPI History of Present Illness: term here for induction - CONSULTS | PROCEDURES Procedures: misoprostol induction of labor. vaginal delivery with repair of second degree laceration - HOSPITAL COURSE Hospital Course: Received miso x 1 for induction and went into labor. Delivered in am wihtout complication. baby 7+ pounds. no issues. discharged on PPD #1. stable. - ALLERGIES Allergies/Adverse Reactions: Allergies Allergy/AdvReac Type Severity Reaction Status Date / Time No Known Allergies Allergy Unknown Verified 07/10/22 07:27 - MEDICATIONS Home Medications: Ambulatory Orders Medication Instructions Recorded Confirmed No Known Home Medications 08/17/23 08/17/23 - PHYSICAL EXAM AT DISCHARGE General Appearance: positive: No acute distress Respiratory: positive: No respiratory distress Cardiovascular: positive: Regular rate & rhythm Abdomen: positive: Non-tender - LABS Result Diagrams: 08/16/23 20:20 - FOLLOW UP Follow Up: 1 week in clinic - TIME SPENT Time Spent in Discharge (Minutes): 20"
== END 2023-08-18 12:30 | disposition home or self-care (01) | DRG 807 ==
LOC: WFO 18:57 → FBP 18:58 → WFO 20:42
PROVIDERS: ADMIT Obstetrics & Gynecology; ATTEND Obstetrics & Gynecology
PROC: 3E0DXGC Introduction of Other Therapeutic Substance into Mouth and Pharynx, External Approach (ICD-10-PCS; 2023-08-16)
PROC: 10E0XZZ Delivery of Products of Conception, External Approach (ICD-10-PCS; principal; 2023-08-17)
PROC: 0KQM0ZZ Repair Perineum Muscle, Open Approach (ICD-10-PCS; 2023-08-17)
PROC: 10907ZC Drainage of Amniotic Fluid, Therapeutic from Products of Conception, Via Natural or Artificial Opening (ICD-10-PCS; 2023-08-17)
DX: O70.1 Second degree perineal laceration during delivery (principal); Z37.0 Single live birth; Z3A.39 39 weeks gestation of pregnancy; O99.02 Anemia complicating childbirth; D50.9 Iron deficiency anemia, unspecified; O69.81X0 Labor and delivery complicated by cord around neck, without compression, not applicable or unspecified
CPT/HCPCS: 36415; 59409; 83033; 85025; 86850; 86870; 86880; 86900; 86901; A9270; J1750; J7120; Q0162

== ENCOUNTER 2023-09-15 08:00 | Outpatient (CLI) | payer OTHER ==
[2023-09-15 11:35] LABS: BILIRUBIN,URINE NEGATIVE (NEGATIVE); GLUCOSE, URINE (UA) NEGATIVE (NEGATIVE); KETONES,URINE (UA) NEGATIVE (NEGATIVE); LEUKOCYTE ESTERASE, URINE NEGATIVE (NEGATIVE); NITRITE,URINE NEGATIVE (NEGATIVE); OCCULT BLOOD,URINE NEGATIVE (NEGATIVE); PH,URINE 6.5 PH (5.0-7.5); PROTEIN,URINE NEGATIVE (NEGATIVE); UROBILINOGEN,URINE 0.2 (NORMAL) E.U./dL (NORMAL)
[2023-09-15 12:16] LABS: BACTERIA,URINE None Seen /HPF (None Seen); CLARITY,URINE CLEAR (CLEAR); RBC,URINE 0-5 /HPF (0-5); SQUAMOUS EPITHELIAL CELL,UR NONE SEEN (<= Few); WBC,URINE 0-3 /HPF (0-5)
[2023-09-15 17:52] LABS: BACTERIAL VAGINOSIS DNA NEGATIVE (NEGATIVE); CANDIDA GLABRATA DNA NEGATIVE (NEGATIVE); CANDIDA GROUP DNA NEGATIVE (NEGATIVE); CANDIDA KRUSEI DNA NEGATIVE (NEGATIVE); TRICHOMONAS VAGINALIS DNA NEGATIVE (NEGATIVE)
== END 2023-09-15 23:59 | disposition home or self-care (01) ==
LOC: LAB.WC 08:00
PROVIDERS: ATTEND Obstetrics & Gynecology
DX: R10.30 Lower abdominal pain, unspecified (principal); N89.8 Other specified noninflammatory disorders of vagina
CPT/HCPCS: 81001; 81514; 87086

== ENCOUNTER 2023-09-28 08:00 | Outpatient (CLI) | payer OTHER ==
[2023-09-28 20:06] LABS: CHLAMYDIA TRACHOMATIS DNA NEGATIVE (NEGATIVE); NEISSERIA GONORRHOEAE DNA NEGATIVE (NEGATIVE); TRICHOMONAS VAGINALIS DNA NEGATIVE (NEGATIVE)
== END 2023-09-28 23:59 | disposition home or self-care (01) ==
LOC: LAB.WC 08:00
PROVIDERS: ATTEND Obstetrics & Gynecology
DX: Z11.3 Encounter for screening for infections with a predominantly sexual mode of transmission (principal)
CPT/HCPCS: 87491; 87591; 87661